=== PATIENT | female | born 1940 | race African-American/Black ===

== ENCOUNTER 2017-04-26 16:41 | Inpatient (IN) ==
[2017-04-26] MEDS ORDERED: CLINDAMYCIN INJ 600 MG in PREMIX 1 EACH IV STA (18:11)
[2017-04-26] MEDS ORDERED: SODIUM CHLORIDE 0.9% 500 ML IV STA (18:11)
[2017-04-26] MEDS ORDERED: cefTRIAXone 1,000 MG in SODIUM CHLORIDE 0.9% 100 ML IV STA (18:11)
[2017-04-26] MEDS ORDERED: DEXAMETHASONE 4 MG/1 ML VIAL IV STA (18:13)
[2017-04-26] MEDS ORDERED: cefTRIAXone 1,000 MG VIAL ONE (18:19)
[2017-04-26] MEDS ORDERED: CLINDAMYCIN 600 MG/4 ML VIAL ONE (18:20)
[2017-04-26] MEDS ORDERED: DEXAMETHASONE 10 MG/1 ML VIAL ONE (18:20)
--- NOTE | 2017-04-26 18:31 | Emergency Department Note ---
Liberty Chan Brittany, am scribing for, and in the presence of, Med Avendano MD 18:19. Romana Chan Charles R, MD, personally performed the services described in this documentation, ascribed by Jennifer Koenig in my presence, and it is both accurate and complete 831 . Arrival - Arrival ED Nursing Triage Note: L SIDE OF FACE SWOLLEN, SAW DR SANTILLAN TODAY AND RX GIVEN , ON WAY HOME PT BEGAN TO COMPLAIN OF BEING COLD SO THEY JUST BROUGHT HER BACK, ACCU CHECK IN TRIAGE 193 MG/DL Mode of Arrival: Wheelchair Limitations: No Limitations Source: Patient, Significant other - History of Present Illness Onset (ago): week(s) (Started 1 week ago) Consistency: constant Severity: moderate <eMd Avendano - Last Filed: 04/26/17 19:06> <Santos Quiroz - Last Filed: 04/26/17 20:38> - Arrival Chief Complaint: Abscess Stated Complaint: cold,diabetic,abscess on face,faintedm,tembling Time Seen by Provider: 04/26/17 17:54 - History of Present Illness HPI Narrative: This is a 76 y/o black female, who presents to the ED with c/o facial abscess which started 1 week ago. Her family states pt was seen by Dr. Santillan today and was given an RX for ABX. Her family states pt was instructed to take the ABX today and tomorrow, and then come back on 04/28. She was brought here, for unknown reasons. She has no pain at this time. Pt has no other complaints/pain in the ED at this time. Pt has a PMHx of CVA, CHF, CAD, TIA, IDDM, dyslipidemia , A-fib, GOUT, COPD, obstructive sleep apnea, and anemia. Pt has had a hysterectomy. Pt has a family medical Hx of diabetes and HTN. Pt denies a social Hx. (Jennifer Koenig) This is a 76 y/o black female, who presents to the ED with c/o facial abscess which started 1 week ago. Her family states pt was seen by Dr. Santillan today and was given an RX for ABX. Her family states pt was instructed to take the ABX today and tomorrow, and then come back on 04/28. She was brought here, for unknown reasons. She has no pain at this time. Pt has no other complaints/pain in the ED at this time. Pt has a PMHx of CVA, CHF, CAD, TIA, IDDM, dyslipidemia , A-fib, GOUT, COPD, obstructive sleep apnea, and anemia. Pt has had a hysterectomy. Pt has a family medical Hx of diabetes and HTN. Pt denies a social Hx. (Med Avendano) family describe a near syncopal or syncopal episode prior to arrival (Santos Quiroz) Allergies/Adverse Reactions: Allergies Allergy/AdvReac Type Severity Reaction Status Date / Time No Known Allergies Allergy Verified 04/26/17 17:18 Home Medications: Home Medications Medication Instructions Recorded Confirmed Type Aspirin [Ecotrin] 81 mg PO QAM 09/20/15 04/26/17 History Digoxin Tab [Lanoxin Tab] 0.125 mg PO QOTHER DAY 09/20/15 04/26/17 History Losartan [Cozaar] 50 mg PO DAILY 09/20/15 04/26/17 History Magnesium Oxide [Magox 400] 400 mg PO BID 09/20/15 04/26/17 History Omeprazole [Prilosec] 20 mg PO DAILY 09/20/15 04/26/17 History Furosemide Tab [Lasix Tab] 80 mg PO BID DIURETIC #60 tablet 09/24/15 04/26/17 Rx Albuterol Inhaler [Proventil 2 puff INH Q4H PRN 04/26/17 04/26/17 History Inhaler] Carvedilol [Coreg] 3.125 mg PO BID W/MEALS 04/26/17 04/26/17 History Ferrous Sulfate Tab [Feosol 325 mg PO BID 04/26/17 04/26/17 History Original Tab] Linagliptin [Tradjenta] 5 mg PO DAILY 04/26/17 04/26/17 History Potassium Chloride 10 meq PO QOTHER DAY 04/26/17 04/26/17 History Spironolactone [Aldactone] 25 mg PO BID DIURETIC 04/26/17 04/26/17 History hydrALAZINE TAB [Apresoline Tab] 25 mg PO BID 04/26/17 04/26/17 History metFORMIN [Glucophage] 1,000 mg PO DAILY W/BREAKFAST 04/26/17 04/26/17 History metFORMIN [Glucophage] 500 mg PO QPM 04/26/17 04/26/17 History Review of System - Review of System 12 point system: reviewed and no additional remarkable complaints except as stated - Review of System Constitutional: Present: fever Head/Ears/Nose/Throat: Present: other (Facial abscess) <Med Avendano - Last Filed: 04/26/17 19:06> Medical,Surgical,& Family Hx - Medical History Cardio: History of: Cardiac Dysrhythmia (atrial fib), Cerebrovascular Disease, CHF (nonischemic cardiomyopathy with EF of 20%), CAD (CARDIOMYOPATHY WITH REGURG ), Hypertension, Valvular Heart Disease, Cardiovascular Problems No history of: Aneurysm, Congenital Heart Disease, [place], Pacemaker, PVD Psychological: No history of: Anxiety Disorders, Depression Neurology: History of: Cerebrovascular Accident, TIA No history of: Seizures HEENT: History of: Glaucoma Endocrine: History of: Diabetes Mellitus (IDDM), Dyslipidemia Rheumatology: History of;: Gout Respiratory: History of: COPD, Obstructive Sleep Apnea No history of: Asthma, Bronchitis, Intubation, Pulmonary Embolism, Pulmonary Hypertension, Pneumonia, Lung Cancer, Respiratory Problems Renal: No history of: Renal (Kidney) Cancer, Dialysis, Renal Failure, Renal Problems Genitourinary: No history of: Bladder Problem, Kidney Stones, Recurring Urinary Tract Infections, Genitourinary Cancer, Problems Hematology: History of: Anemia - Surgical History Cardiac Surgeries: Patient Denies: Femoral-Popliteal Bypass Graft, Cardiac Catheterization, Cardiac Surgery, Carotid Endarterectomy, Internal Defibrillator, Vascular Access Devices Thoracic Surgeries: Patient denies;: Kidney (Renal Surgery), Lithotripsy, Nephrectomy, Lobectomy HEENT Surgeries: Patient denies: Carotid Endarterectomy Abdominal Surgeries: Patient denies: Splenectomy Reproductive Surgeries: Surgical HX of;: Hysterectomy Patient denies;: Cystoscopy, Genitourinary Surgery - Family History Family History: Reports;: Family Diabetes, Family Hypertension Denies;: Family Heart Disease - Social History Smoking Status: Never smoker <Med Avendano R - Last Filed: 04/26/17 19:06> Exam - General General appearance: alert, in no apparent distress - Head Head exam: Present: atraumatic, other. Absent: normocephalic, normal inspection (There is a rock soild hard cellulitis noted to the face. ) - Eye Eye exam: Present: normal appearance, PERRL, EOMI. Absent: nystagmus - ENT ENT exam: Present: normal exam, mucous membranes moist, other (Edentulous) - Neck Neck exam: Present: normal inspection, full ROM, trachea midline. Absent: tenderness - Chest Chest inspection: Present: normal inspection, symmetric chest wall rise. Absent : tenderness - Respiratory Respiratory exam: Present: rales, rhonchi. Absent: normal lung sounds bilaterally - Cardiovascular Cardiovascular exam: Present: normal rhythm, tachycardia, normal heart sounds. Absent: murmur, rubs, gallop, clicks, JVD - Abdominal Exam Abdominal exam: Present: soft, normal bowel sounds. Absent: distention, tenderness, guarding, rebound, rigidity - Rectal Exam Rectal exam: Present: deferred - Extremities Exam Extremities exam: Present: normal inspection, full ROM, normal capillary refill. Absent: pedal edema - Back Exam Back exam: Present: normal inspection, full ROM. Absent: tenderness, muscle spasm, rashes - Neurological Exam Neurological exam: Present: alert, oriented X3, CN II-XII intact. Absent: motor sensory deficit - Psychiatric Psychiatric exam: Present: normal affect, normal mood. Absent: depressed, agitated, anxious, flat affect, manic - Skin Skin exam: Present: warm, dry, intact, normal color. Absent: rash, cyanosis, diaphoresis, erythema, pallor, mottled <Med Avendano - Last Filed: 04/26/17 19:06> Vital Signs: Vital Signs Temperature 100.2 F H 04/26/17 17:57 Pulse Rate 118 H 04/26/17 17:57 Respiratory Rate 20 04/26/17 17:57 Blood Pressure 110/71 04/26/17 17:57 O2 Sat by Pulse Oximetry 91 L 04/26/17 17:08 Course - Consultations Time: 19:06 <Med Avendano - Last Filed: 04/26/17 19:06> <Santos Quiroz - Last Filed: 04/26/17 20:38> - Consultations Consultation #1: Patient's care was transferred to Dr. Quiroz ER doctor assuming care of this patient (Med Avendano) Consultation #2: will admit for IV abx and ENT surgical consult (Santos Quiroz) Results - Labs CBC & BMP: 04/26/17 18:55 04/26/17 18:55 Lab Results: I have reviewed the patients labs - Diagnostic Findings Procedure: CT: image reviewed by me (see reports) <Santos Quiroz - Last Filed: 04/26/17 20:38> Disposition Case discussed with: patient, patient's family <Med Avendano - Last Filed: 04/26/17 19:06> Case discussed with: patient, patient's family <Santos Quiroz - Last Filed: 04/26/17 20:38> Clinical Impression: Cellulitis, Sepsis, Syncope Disposition: Still a Patient Condition: Stable
[2017-04-26 19:08] LABS: Basophils % 0.2 % (0.0-0.8); Hemoglobin 10.1 GM/DL (12.0-16.0); Immature Granulocytes % 0.7 %; Immature Granulocytes Absolute 0.17 #; Lymphocytes # 0.6 10*3/uL (1.4-4.0); Lymphocytes % 2.4 % (21.3-54.2); Mean Corpuscular HGB Conc 33.7 GM/DL (32-36); Mean Corpuscular Hemoglobin 25 PG (27-34); Mean Corpuscular Volume 74.3 FL (87-102); Mean Platelet Volume 9.5 FL (9.6-12.0); Monocytes # 0.7 10*3/uL (0.11-0.8); Monocytes % 2.7 % (1.7-12.7); NRBC # 0.02 10*3/uL; Neutrophils # 22.6 10*3/uL (1.4-7.4); Platelet Count 321 T/CUMM (130-400); Red Blood Count 4.04 MC/CUMM (3.8-5.5); Red Cell Distribution Width 19.8 % (9.3-17.3); White Blood Count 24.1 T/CUMM (4-12)
--- NOTE | 2017-04-26 19:08 | CT Report ---
CT head/brain wo con Indication: Confusion. CT BRAIN WITHOUT CONTRAST DLP: 1568 mGy*cm. One or more of the following dose reduction techniques was used: Automated exposure control, adjustment of the mA and/or kV according the patient size, or use of iterative reconstruction techniques. Comparison: 03/21/2013. Date of admission: 04/26/2017. Technique: Axial noncontrast CT images of the brain were obtained. Findings: There is focal encephalomalacia subcortical white matter left frontal lobe. Elsewhere, lawler-white junction is maintained in the basal ganglia structures remain well-defined. No acute hemorrhage. No mass or mass effect. Generalized atrophy and patchy periventricular white matter hypodensity is present. No bone lesions. Visualized sinuses are clear. Left parotid mass, described separately. Impression: 1. No acute intracranial pathology. 2. Generalized atrophy and chronic small vessel ischemic change. 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 PROCEDURE INTERPRETED AT [facility] DEPARTMENT OF RADIOLOGY Final Report Signed by: Levar Ku M.D.
--- NOTE | 2017-04-26 19:11 | CT Report ---
CT facial bones wo con Indication: Cellulitis left face. CT FACE WITHOUT CONTRAST DLP: 1568 mGy*cm. One or more of the following dose reduction techniques was used: Automated exposure control, adjustment of the mA and/or kV according the patient size, or use of iterative reconstruction techniques. Technique: Axial noncontrast CT images of the face were obtained. Coronal reconstructions were provided. Comparison: 06/01/2010 Findings: The left parotid gland is significantly enlarged, more so than on the previous exam 7 years ago. Overall size of the left parotid is approximately 80 x 60 mm, previously 70 x 45 mm in same dimension. 2 distinct internal calcifications are again shown. Right parotid gland, submandibular glands and floor the mouth appear unremarkable. Airways somewhat deviated to the right due to mass effect from the left parotid gland. Left posterior cervical chain lymphadenopathy is identified, largest node 10 mm short axis. Largest anterior chain node is 9 mm short axis. No bony destruction. No facial fractures. Orbits are symmetric. Impression: 1. 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 Internal calcifications noted as well. Given the relatively slow growth over 7 years, suspect a indolent and relatively benign process. Would anticipate neoplasm the most progressive. There is, however, left anterior posterior cervical chain lymphadenopathy present. PROCEDURE INTERPRETED AT [facility] DEPARTMENT OF RADIOLOGY Final Report Signed by: Levar Ku M.D.
--- NOTE | 2017-04-26 19:18 | XRay Report ---
XR chest 1V portable Indication: Shortness of breath and fever. Chest one view: Comparison 09/23/2015. Moderate to severe cardiomegaly is stable. Lungs remain hypoinflated with central pulmonary vascular crowding. Mild elevation right hemidiaphragm is stable. No definite infiltrates are seen but the left lung base is somewhat obscured by combination of obesity, overlying cardiac shadow, and possible infiltrate. Impression: 1. Cardiomegaly without overt CHF. 2. Obscuration left lung base, likely summation of overlying densities. However, underlying pneumonia cannot be excluded. PROCEDURE INTERPRETED AT [facility] DEPARTMENT OF RADIOLOGY Final Report Signed by: Levar Ku M.D.
[2017-04-26 19:28] LABS: Band Neutrophils 1 % (0-10); Hypochromasia 2+; Lymphocytes 1 % (20-55); Ovalocytes 1+; Platelet Estimate Adequate; Poikilocytosis 1+; Segmented Neutrophils 96 % (50-85); Target Cells Few; Total Cells Counted 100
[2017-04-26 19:37] LABS: Albumin 2.9 G/DL (3.4-5.0); Bilirubin,Total 2.1 MG/DL (0.2-1.0); Calcium 8.9 MG/DL (8.5-10.1); Potassium 3.1 MMOL/L (3.5-5.1); Total Protein 7.7 G/DL (6.4-8.3)
[2017-04-26 20:11] LABS: Sedimentation Rate-Westergren 95 MM/HR (0-30)
[2017-04-26] MEDS ORDERED: ONDANSETRON 4 MG/2 ML VIAL IV PRN (20:21)
[2017-04-26] MEDS ORDERED: ZALEPLON 5 MG CAPSULE PO PRN (20:21)
[2017-04-26] MEDS ORDERED: DEXTROSE 50% 25 GM/50 ML SYRINGE IV PRN (20:21)
[2017-04-26] MEDS ORDERED: GLUCAGON 1 MG VIAL IM PRN (20:21)
[2017-04-26] MEDS ORDERED: ACETAMINOPHEN 325 MG TABLET PO PRN (20:21)
--- NOTE | 2017-04-26 21:00 | Hospitalist History & Physical ---
Assessment and Plan - Time spent with patient Time spent with patient: Greater than 30 minutes (1) Acute parotitis Status: Acute Assessment and plan: Admit to hospitalist services. Consult ENT. Zosyn 3.375 mg Q8 hours. Diabetic Diet - Soft diet/Soups. Current Visit: Yes (2) Sepsis Status: Acute Assessment and plan: Source: Left parietal gland and possibly lungs. Patient has a history of CHF and was given a 500 ml bolus in the ED. IV NS + 40KCl at 50 ml/hr. Zosyn 3.375 mg IV Q8 hours. Repeat CBC and CMP in AM. Current Visit: Yes (3) Congestive heart failure Status: Chronic Assessment and plan: Holding IV fluids for now. BP is stable at this time. Hold home BP meds for now due to syncopal episode and monitor BP. Hold diuretics for now; continue to monitor fluid status. Current Visit: No (4) Diabetes mellitus Status: Chronic Assessment and plan: Accuchecks ACHS. Hold oral medications. SSI ACHS. Repeat CMP in AM. Current Visit: Yes Qualifiers: Diabetes mellitus complication status: with skin complications Diabetes mellitus complication detail: with dermatitis (5) Essential hypertension Status: Resolved Assessment and plan: Stable for now. Hold home meds for now. Monitor. Current Visit: No (6) DVT prophylaxis Status: Acute Assessment and plan: Lovenox 40 mg SQ daily. Current Visit: Yes History of Present Illness Chief complaint: Jaw swelling History of present illness: Ms. Garcia is a 76 year old female with a history of CVA, CHF, DM, HTN, and two previous episodes of parotitis who presented to the ED today with complaints of left jaw swelling and malaise x 6 days. Ms. Garcia was seen today by Dr. Young and states that he wanted to drain her abscess but was unable to do so today for reasons that are not completely clear. He sent her home with prescriptions for antibiotics and told her to come back on at which time he would put her in the hospital and drain the abscess. While the family was waiting in the pharmacy drive through to flower pick[facility] prescriptions, they state that the patient "went out" and when she "came to" she was shaking, did not initially respond verbally, and was disoriented to person. In the ED, Ms. Garcia was found to have a WBC count of 24.1, temp of 100.2, HR of 122, RR of 22 and O2 sat of 91 % on 2L of O2. 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 Internal calcifications noted as well. Given the relatively slow growth over 7 years, suspect a indolent and relatively benign process. Would anticipate neoplasm the most progressive. There is, however, left anterior posterior cervical chain lymphadenopathy present." CXR showed "cardiomegaly without overt CHF and obscuration left lung base, likely summation of overlying densities. However, underlying pneumonia cannot be excluded." She denies headache, chest pain, shortness of breath, and nausea, vomiting or diarrhea. She does state that she has had a cough and something sometimes "comes up," but she is unsure if it is coming from her chest of if it is draining from her abscess. Hospitalist services were consulted for IV antibiotic treatment, and the patient will be admitted to the med-surg floor. Home Medications Medication Instructions Recorded Confirmed Type Aspirin [Ecotrin] 81 mg PO QAM 09/20/15 04/26/17 History Digoxin Tab [Lanoxin Tab] 0.125 mg PO QOTHER DAY 09/20/15 04/26/17 History Losartan [Cozaar] 25 mg PO DAILY 09/20/15 04/26/17 History Magnesium Oxide [Magox 400] 400 mg PO BID 09/20/15 04/26/17 History Omeprazole [Prilosec] 20 mg PO DAILY 09/20/15 04/26/17 History Furosemide Tab [Lasix Tab] 80 mg PO BID DIURETIC #60 tablet 09/24/15 04/26/17 Rx Albuterol Inhaler [Proventil 2 puff INH Q4H PRN 04/26/17 04/26/17 History Inhaler] Carvedilol [Coreg] 3.125 mg PO BID W/MEALS 04/26/17 04/26/17 History Ferrous Sulfate Tab [Feosol 325 mg PO BID 04/26/17 04/26/17 History Original Tab] Latanoprost 0.005% Oph Soln 2 drops BOTH EYES BEDTIME 04/26/17 04/26/17 History [Xalatan 0.005% Oph Soln] Linagliptin [Tradjenta] 5 mg PO DAILY 04/26/17 04/26/17 History Potassium Chloride 10 meq PO QOTHER DAY 04/26/17 04/26/17 History Spironolactone [Aldactone] 25 mg PO BID DIURETIC 04/26/17 04/26/17 History hydrALAZINE TAB [Apresoline Tab] 25 mg PO BID 04/26/17 04/26/17 History metFORMIN [Glucophage] 1,000 mg PO DAILY W/BREAKFAST 04/26/17 04/26/17 History metFORMIN [Glucophage] 500 mg PO QPM 04/26/17 04/26/17 History Allergies Allergy/AdvReac Type Severity Reaction Status Date / Time No Known Allergies Allergy Verified 04/26/17 17:18 Medical,Surgical,& Family Hx - Medical History Cardio: History of: Cardiac Dysrhythmia (atrial fib), Cerebrovascular Disease, CHF (nonischemic cardiomyopathy with EF of 20%), CAD (CARDIOMYOPATHY WITH REGURG ), Hypertension, Valvular Heart Disease, Cardiovascular Problems No history of: Aneurysm, Congenital Heart Disease, [place], Pacemaker, PVD Psychological: No history of: Anxiety Disorders, Depression Neurology: History of: Cerebrovascular Accident, TIA No history of: Seizures HEENT: History of: Glaucoma, HEENT Problems (parotitis) Endocrine: History of: Diabetes Mellitus (IDDM), Dyslipidemia Rheumatology: History of;: Gout Respiratory: History of: COPD, Obstructive Sleep Apnea No history of: Asthma, Bronchitis, Intubation, Pulmonary Embolism, Pulmonary Hypertension, Pneumonia, Lung Cancer, Respiratory Problems Renal: No history of: Renal (Kidney) Cancer, Dialysis, Renal Failure, Renal Problems Genitourinary: No history of: Bladder Problem, Kidney Stones, Recurring Urinary Tract Infections, Genitourinary Cancer, Problems Gastrointestinal: History of: GERD Hematology: History of: Anemia - Surgical History Cardiac Surgeries: Patient Denies: Femoral-Popliteal Bypass Graft, Cardiac Catheterization, Cardiac Surgery, Carotid Endarterectomy, Internal Defibrillator, Vascular Access Devices Thoracic Surgeries: Patient denies;: Kidney (Renal Surgery), Lithotripsy, Nephrectomy, Lobectomy HEENT Surgeries: Patient denies: Carotid Endarterectomy Abdominal Surgeries: Patient denies: Splenectomy Reproductive Surgeries: Surgical HX of;: Hysterectomy Patient denies;: Cystoscopy, Genitourinary Surgery - Family History Family History: Reports;: Family Diabetes, Family Hypertension Denies;: Family Heart Disease - Social History Smoking Status: Never smoker Have you smoked in the last 12 months: No Frequency of Alcohol Use: None Type of Drug Use: None Marital Status: Lives With:: Children Functional capacity: uses cane/walker - Constitutional Constitutional: Present: chills, fever(s), malaise, weakness - EENT Eyes: Absent: blurry vision, diplopia, loss of vision Ears: Absent: decreased hearing, ear discharge, tinnitus Nose, mouth and throat: Present: other (jaw swelling). Absent: headache(s), sore throat - Cardiovascular Cardiovascular: Absent: chest pain at rest, dyspnea, edema - Respiratory Respiratory: Present: cough. Absent: dyspnea - Gastrointestinal Gastrointestinal: Absent: abdominal pain, diarrhea, nausea, vomiting - Genitourinary Genitourinary: Absent: dysuria, urinary frequency - Musculoskeletal Musculoskeletal: Present: muscle weakness. Absent: arthralgias, joint swelling , myalgias - Neurological Neurological: Present: other (disorientation; shaking). Absent: headache(s) - Psychiatric Psychiatric: Absent: anxiety, depression - Endocrine Endocrine: Absent: polydipsia, polyphagia, polyuria - Hematologic/Lymphatic Hematologic/Lymphatic: Absent: easy bleeding, easy bruising Exam - Constitutional Vitals: Period Temp Pulse Resp BP Sys/Johnson Pulse Ox Last 24 Hr 100.2 F-100.2 F 118-122 20-22 110-110/71-71 91 Exam: Constitutional System: Awake, alert and oriented x 3. No distress. No tremulousness. Head: Normocephalic, atraumatic. Ears, Nose and Throat System: Significant swelling and tenderness around left lower jaw. No epistaxis or discharge Eyes System: Pupils equal, round, and reactive. Extraocular muscles intact. Neck: Supple, without adenopathy, No jugular venous distention. No thyromegaly, neck mass, or prior surgery apparent. Respiratory System: Diminished bilateral posterior breath sounds, particularly in the bases. Cardiovascular System: Heart with tachycardic rate and irregular rhythm. No murmur. GI System: Abdomen soft, nontender. Normo active bowel sounds present. Musculoskeletal System: limbs with minimal pedal edema. Full distal pulses. Normal capillary refill. Neurological System: No discernable sensory deficit. No aphasia. Psychiatric System: Conversation is rational Results - Labs CBC & BMP: 04/26/17 18:55 04/26/17 18:55 Lab Results: I have reviewed the past 24 hour labs
[2017-04-26] MEDS: PIPERACILLIN/TAZOBACTAM 3,375 MG in SODIUM CHLORIDE 0.9% 100 ML IV SCH (23:12)
[2017-04-26] MEDS: ENOXAPARIN 40 MG/0.4 ML SYRINGE SUBCUT SCH (23:15)
[2017-04-27 03:50] LABS: Apearance,Urine CLEAR (Clear); Bilirubin,Urine Negative (Negative); Blood, Urine Negative (Negative); Glucose,Urine (UA) Negative (Negative); Ketones,Urine Negative (Negative); Mucus,Urine Occasional /LPF (Occasional); Nitrite,Urine Negative (Negative); Protein,Urine 100 MG/DL; RBC,Urine 2 /HPF (0-4); Squamous Epithelial Cell,Urine Occasional /HPF (0-10); Urine Color Amber (Yellow); Urine Specific Gravity 1.016 (1.001-1.035); WBC,Urine 1 /HPF (0-6)
[2017-04-27 05:31] LABS: Troponin I Only 0.148 NG/ML (0.00-0.045)
[2017-04-27] MEDS: SODIUM CHLOR 0.9% KCL 40 MEQ 40 MEQ/1,000 ML BAG IV SCH (06:00)
[2017-04-27] MEDS: PIPERACILLIN/TAZOBACTAM 3,375 MG in SODIUM CHLORIDE 0.9% 100 ML IV SCH ×3 (06:07→22:13)
[2017-04-27 07:19] LABS: Basophils % 0.2 % (0.0-0.8); Hematocrit 31.2 VOL% (35.7-47.0); Hemoglobin 10.1 GM/DL (12.0-16.0); Immature Granulocytes % 1.7 %; Immature Granulocytes Absolute 0.45 #; Lymphocytes # 0.8 10*3/uL (1.4-4.0); Lymphocytes % 3.1 % (21.3-54.2); Mean Corpuscular HGB Conc 32.4 GM/DL (32-36); Mean Corpuscular Hemoglobin 24 PG (27-34); Mean Corpuscular Volume 75.4 FL (87-102); Mean Platelet Volume 10.1 FL (9.6-12.0); Monocytes # 1.1 10*3/uL (0.11-0.8); Monocytes % 4.2 % (1.7-12.7); Neutrophils # 23.7 10*3/uL (1.4-7.4); Neutrophils % 90.8 % (38.7-73.9); Platelet Count 361 T/CUMM (130-400); Red Blood Count 4.14 MC/CUMM (3.8-5.5); Red Cell Distribution Width 20.2 % (9.3-17.3); White Blood Count 26.1 T/CUMM (4-12)
[2017-04-27 07:46] LABS: Albumin 2.7 G/DL (3.4-5.0); Bilirubin,Total 2.1 MG/DL (0.2-1.0); Calcium 9.3 MG/DL (8.5-10.1); Osmolality,Calculated 286.3 MOS/KG (273-304); Potassium 3.4 MMOL/L (3.5-5.1); Total Protein 7.5 G/DL (6.4-8.3)
[2017-04-27 07:47] LABS: Band Neutrophils 4 % (0-10); Hypochromasia 2+; Lymphocytes 3 % (20-55); Segmented Neutrophils 90 % (50-85); Total Cells Counted 100
[2017-04-27 07:48] LABS: Microcytosis 1+; Ovalocytes Slight; Platelet Estimate Normal
[2017-04-27 07:50] LABS: Troponin I Only 0.182 NG/ML (0.00-0.045)
[2017-04-27] MEDS: PANTOPRAZOLE 40 MG TABLET PO SCH (09:04)
[2017-04-27 10:58] LABS: Troponin I Only 0.173 NG/ML (0.00-0.045)
--- NOTE | 2017-04-27 11:14 | Hospitalist Progress Note ---
Assessment and Plan (1) Elevated troponin Status: Acute Assessment and plan: Troponins today have been 0.183 and 0.172. Her troponins may be elevated secondary to renal insufficiency. Cardiology has been consulted. Current Visit: Yes (2) Renal insufficiency Status: Acute Assessment and plan: Today her BUN is 22 and creatinine 1.2. She is being treated with intravenous normal saline. It is unclear if this is acute on chronic renal failure or alternatively acute renal failure. Current Visit: Yes (3) Nonischemic cardiomyopathy Status: Chronic Assessment and plan: There is no evidence of the present time of acute congestive heart failure. Current Visit: No (4) Diabetes mellitus Status: Chronic Assessment and plan: She has type 2 diabetes mellitus. She is presently being treated with Metformin and linaglitide. She is being treated in the hospital with sliding scale regular insulin coverage. Current Visit: Yes Qualifiers: Diabetes mellitus type: type 2 Diabetes mellitus complication status: with skin complications Diabetes mellitus complication detail: with dermatitis (5) Sepsis Status: Acute Assessment and plan: She is hemodynamically stable. She is being treated with intravenous Zosyn. Current Visit: Yes Qualifiers: Sepsis type: sepsis due to unspecified organism Qualified Code(s): A41.9 - Sepsis, unspecified organism (6) Syncope Status: Acute Assessment and plan: She has experienced no recurrent such episodes. It is probable that her syncope is secondary to her sepsis. Current Visit: Yes (7) Acute parotitis Status: Acute Assessment and plan: She is being treated with intravenous Zosyn. Otolaryngology has been consulted. Current Visit: Yes Hospitalist: Subjective Interval history: Patient was admitted to the hospital last night with syncope, parotitis, and sepsis. She is presently being treated with intravenous Zosyn. Neurology and otolaryngology have been consulted. She feels much better today. She has had no recurrent episodes of syncope. Exam - Constitutional Vitals: Period Temp Pulse Resp BP Sys/Johnson Pulse Ox Last 24 Hr 97.4 F-100.2 F 65-122 18-22 110-117/66-71 91-99 General appearance: no acute distress - Head Head exam: Present: normal inspection - Neck Neck exam: Present: normal inspection - Respiratory Respiratory exam: Present: clear to auscultation bilaterally - Cardiovascular Cardiovascular exam: Present: regular rate and rhythm - GI/Abdominal GI/Abdominal exam: Present: normal bowel sounds, soft, other (Nontender with no palpable masses or hepatosplenomegaly.) - Extremities Exam Extremities exam: Present: normal inspection - Neurological Exam Neurological exam: Present: alert, oriented X3, CN II-XII intact - Psychiatric Psychiatric exam: Present: normal affect - Skin Skin exam: Present: normal color, warm, intact Results - Labs CBC & BMP: 04/27/17 06:47 04/27/17 06:47
--- NOTE | 2017-04-27 11:27 | Ultrasound Report ---
History: Syncope Date: 04/27/2017 Study: Carotid duplex ultrasound Comparison exam: August 10, 2012 Color Doppler, wave form analysis, and grayscale analysis of the cervical carotid arteries was performed. There is mild smooth plaque in either carotid bulb. Waveform analysis shows proper directional flow of the cervical carotid arteries. There is antegrade flow in either vertebral artery. The distal right ICA measures 6.5 mm diameter; the left measures 6.3 mm diameter. Peak systolic velocities are as follows: Right CCA 52 cm/s Right ICA 73 cm/s Right ECA 56 cm/s Right vertebral 50 cm/s Right IC/CC ratio 1.4 Left CCA 42 cm/s Left ICA 71 cm/s Left ECA 52 cm/s Left vertebral 30 cm/s Left IC/CC ratio 1.7 There is 16-49% diameter reduction narrowing of either internal carotid artery using indirect NASCET criteria. Ultrasound images were captured and archived. Impression: No hemodynamically significant internal carotid artery stenosis PROCEDURE INTERPRETED AT [facility] DEPARTMENT OF RADIOLOGY Final Report Signed by: Dr. Melita Rivera
[2017-04-27] MEDS ORDERED: ALBUTEROL 2.5 MG/3 ML NEB RESP TX PRN (12:00)
--- NOTE | 2017-04-27 13:00 | Consultation ---
Assessment and Plan - Time spent with patient Time spent with patient: Less than 30 minutes (1) Acute parotitis Status: Acute Assessment and plan: I agree with current treatment I would add sialagogues such as lemon drops I discussed this with her daughter additionally I recommend a K pad or heating pad to help with carotid flow. Additionally I recommend and demonstrated parotid massage and other effleurage techniques that may help with drainage. After reviewing the CT and the fact that she has multiple medical comorbidities and sepsis she may benefit from at least attempting to open the parotid duct and seen if we can get some of this draining. I will reevaluate tomorrow and if she is not drastically improving we may consider a minimal procedure on Tuesday to open things up. Additionally if this continues and does not markedly improve we may need to discuss parotidectomy in the near future. You very much for consulting me on this case I will continue to follow throughout the entirety of her stay. Current Visit: Yes (2) H/O parotitis Status: Acute Current Visit: Yes (3) Trismus Status: Acute Current Visit: Yes (4) Sepsis Status: Acute Current Visit: Yes Qualifiers: Sepsis type: sepsis due to unspecified organism Qualified Code(s): A41.9 - Sepsis, unspecified organism History of Present Illness - Data of Consult Patient: new to practice Consult date: 04/27/17 - Consult Narrative Reason for consult: Left parotiditis versus parotid lesion History of present illness: Ms. Garcia is a 76 year old female with a history of chronic left parotiditis that has recently exacerbated even more than usual and was seen as an outpatient and treated with antibiotics and ultimately worsened on her way home and went to the emergency room where she was admitted. ENT is consulted to evaluate and treat this lesion she is currently being treated with IV Zosyn and has multiple medical comorbidities as well. CC: Eduardo Smith - Home Medications and Allergies Home Medications: Home Medications Medication Instructions Recorded Confirmed Type Aspirin [Ecotrin] 81 mg PO QAM 09/20/15 04/26/17 History Digoxin Tab [Lanoxin Tab] 0.125 mg PO QOTHER DAY 09/20/15 04/26/17 History Losartan [Cozaar] 25 mg PO DAILY 09/20/15 04/26/17 History Magnesium Oxide [Magox 400] 400 mg PO BID 09/20/15 04/26/17 History Omeprazole [Prilosec] 20 mg PO DAILY 09/20/15 04/26/17 History Furosemide Tab [Lasix Tab] 80 mg PO BID DIURETIC #60 tablet 09/24/15 04/26/17 Rx Albuterol Inhaler [Proventil 2 puff INH Q4H PRN 04/26/17 04/26/17 History Inhaler] Carvedilol [Coreg] 3.125 mg PO BID W/MEALS 04/26/17 04/26/17 History Ferrous Sulfate Tab [Feosol 325 mg PO BID 04/26/17 04/26/17 History Original Tab] Latanoprost 0.005% Oph Soln 2 drops BOTH EYES BEDTIME 04/26/17 04/26/17 History [Xalatan 0.005% Oph Soln] Linagliptin [Tradjenta] 5 mg PO DAILY 04/26/17 04/26/17 History Potassium Chloride 10 meq PO QOTHER DAY 04/26/17 04/26/17 History Spironolactone [Aldactone] 25 mg PO BID DIURETIC 04/26/17 04/26/17 History hydrALAZINE TAB [Apresoline Tab] 25 mg PO BID 04/26/17 04/26/17 History metFORMIN [Glucophage] 1,000 mg PO DAILY W/BREAKFAST 04/26/17 04/26/17 History metFORMIN [Glucophage] 500 mg PO QPM 04/26/17 04/26/17 History Allergies/Adverse Reactions: Allergies Allergy/AdvReac Type Severity Reaction Status Date / Time No Known Allergies Allergy Verified 04/26/17 17:18 12 point system: reviewed and no additional remarkable complaints except as stated Medical,Surgical,& Family Hx - Medical History Cardio: History of: Cardiac Dysrhythmia (atrial fib), Cerebrovascular Disease, CHF (nonischemic cardiomyopathy with EF of 20%), CAD (CARDIOMYOPATHY WITH REGURG ), Hypertension, Valvular Heart Disease, Cardiovascular Problems No history of: Aneurysm, Congenital Heart Disease, [place], Pacemaker, PVD Psychological: No history of: Anxiety Disorders, Depression Neurology: History of: Cerebrovascular Accident, TIA No history of: Seizures HEENT: History of: Eye Problem (CATARACT L EYE), Glaucoma, HEENT Problems ( parotitis) Endocrine: History of: Diabetes Mellitus (IDDM), Dyslipidemia No history of: Diabetes Mellitus (NIDDM) Rheumatology: History of;: Gout Respiratory: History of: COPD, Obstructive Sleep Apnea No history of: Asthma, Bronchitis, Intubation, Pulmonary Embolism, Pulmonary Hypertension, Pneumonia, Lung Cancer, Respiratory Problems Renal: No history of: Renal (Kidney) Cancer, Dialysis, Renal Failure, Renal Problems Genitourinary: No history of: Bladder Problem, Kidney Stones, Recurring Urinary Tract Infections, Genitourinary Cancer, Problems Gastrointestinal: History of: GERD Hematology: History of: Anemia Other: History of: Skin Problems (right leg lesion removed) - Surgical History Cardiac Surgeries: Patient Denies: Femoral-Popliteal Bypass Graft, Cardiac Catheterization, Cardiac Surgery, Carotid Endarterectomy, Internal Defibrillator, Vascular Access Devices Thoracic Surgeries: Patient denies;: Kidney (Renal Surgery), Lithotripsy, Nephrectomy, Lobectomy HEENT Surgeries: Patient denies: Carotid Endarterectomy, Eye Surgery, Thyroid Surgery, Tonsilectomy & Adenoidectomy Abdominal Surgeries: Surgical HX of: EGD Patient denies: Abdominal Surgery, Appendectomy, Cholecystectomy, Colonoscopy , Gastric Bypass Surgery, Hernia Repair, Splenectomy Reproductive Surgeries: Surgical HX of;: Hysterectomy Patient denies;: Cystoscopy, Genitourinary Surgery - Family History Family History: Reports;: Family Diabetes, Family Hypertension, Family Psychiatric Problems (daughter (nervous break down)) Denies;: Family Anesthesia Reaction, Family Cancer, Family Heart Disease, Family Hematology, Family Stroke, Additional Family History - Social History Smoking Status: Never smoker Frequency of Alcohol Use: None Type of Drug Use: None Exam - Constitutional Vitals: Period Temp Pulse Resp BP Sys/Johnson Pulse Ox Last 24 Hr 97.4 F-100.2 F 65-122 18-22 101-117/66-71 91-99 General appearance: mild distress, over weight - Head Head exam: Present: other (Very large tender nonfluctuant left parotiditis consistent with CT evaluation consistent with an acute infectious etiology but this may be secondary to an underlying neoplasm most likely benign) - Eye Eye exam: Present: EOMI Pupils: Present: COURTNEY - ENT ENT exam: Present: normal exam, normal external ear exam, other (Significant trismus secondary to the parotiditis) - Neck Neck exam: Present: lymphadenopathy, tenderness, other (Consistent with parotiditis but potentially secondary to underlying neoplasm) - Respiratory Respiratory exam: Present: other (No gross shortness of breath or difficulty breathing) - Cardiovascular Cardiovascular exam: Present: other (History of CHF and significant cardiovascular history I did mention to the nurse practitioner that if she is not improving by tomorrow we may consider dilation irrigation in the OR) - GI/Abdominal GI/Abdominal exam: Present: soft - Extremities Exam Extremities exam: Present: normal inspection, normal capillary refill - Neurological Exam Neurological exam: Present: alert, oriented X3, CN II-XII intact - Psychiatric Psychiatric exam: Present: normal affect, normal mood - Skin Skin exam: Present: normal color, warm Results - Labs CBC & BMP: 04/27/17 06:47 04/27/17 06:47 Lab Results: I have reviewed the past 24 hour labs - Diagnostic Findings Procedure: CT: pending, image reviewed by me, report reviewed by me ( Calcifications consistent with long standing parotid inflammation consistent with chronic parotiditis but potentially an underlying neoplasm or even possibly malignancy but not clearly visualized on CT)
--- NOTE | 2017-04-27 15:33 | Neurology Consult Note ---
History of Present Illness History of present illness: Ms. Garcia is a 76 year old right-handed -Thai lady with a history of left JOSH CVA, CHF, DM, HTN, and two previous episodes of parotitis who presented to the ED yesterday with complaints of left jaw swelling and malaise x 6 days. Ms. Garcia was seen by Dr. Young and states that he wanted to drain her abscess but was unable to do so. He sent her home with prescriptions for antibiotics. While the family was waiting in the pharmacy drive through to picker feeder prescriptions, they state that the patient "went out" and when she "came to" she was shaking, did not initially respond verbally, and was disoriented to person. Episode lasted for 20 minutes or so and associated with urinary incontinence as well. In the ED, Ms. Garcia was found to have a WBC count of 24.1, temp of 100.2, HR of 122, RR of 22 and O2 sat of 91% on 2L of O2. CT of the head revealed old left JOSH infarct but nothing acute. At the present time patient is alert and awake and oriented. Home Medications Medication Instructions Recorded Confirmed Type Aspirin [Ecotrin] 81 mg PO QAM 09/20/15 04/26/17 History Digoxin Tab [Lanoxin Tab] 0.125 mg PO QOTHER DAY 09/20/15 04/26/17 History Losartan [Cozaar] 25 mg PO DAILY 09/20/15 04/26/17 History Magnesium Oxide [Magox 400] 400 mg PO BID 09/20/15 04/26/17 History Omeprazole [Prilosec] 20 mg PO DAILY 09/20/15 04/26/17 History Furosemide Tab [Lasix Tab] 80 mg PO BID DIURETIC #60 tablet 09/24/15 04/26/17 Rx Albuterol Inhaler [Proventil 2 puff INH Q4H PRN 04/26/17 04/26/17 History Inhaler] Carvedilol [Coreg] 3.125 mg PO BID W/MEALS 04/26/17 04/26/17 History Ferrous Sulfate Tab [Feosol 325 mg PO BID 04/26/17 04/26/17 History Original Tab] Latanoprost 0.005% Oph Soln 2 drops BOTH EYES BEDTIME 04/26/17 04/26/17 History [Xalatan 0.005% Oph Soln] Linagliptin [Tradjenta] 5 mg PO DAILY 04/26/17 04/26/17 History Potassium Chloride 10 meq PO QOTHER DAY 04/26/17 04/26/17 History Spironolactone [Aldactone] 25 mg PO BID DIURETIC 04/26/17 04/26/17 History hydrALAZINE TAB [Apresoline Tab] 25 mg PO BID 04/26/17 04/26/17 History metFORMIN [Glucophage] 1,000 mg PO DAILY W/BREAKFAST 04/26/17 04/26/17 History metFORMIN [Glucophage] 500 mg PO QPM 04/26/17 04/26/17 History Allergies Allergy/AdvReac Type Severity Reaction Status Date / Time No Known Allergies Allergy Verified 04/26/17 17:18 12 point system: reviewed and no additional remarkable complaints except as stated Medical,Surgical,& Family Hx - Medical History Cardio: History of: Cardiac Dysrhythmia (atrial fib), Cerebrovascular Disease, CHF (nonischemic cardiomyopathy with EF of 20%), CAD (CARDIOMYOPATHY WITH REGURG ), Hypertension, Valvular Heart Disease, Cardiovascular Problems No history of: Aneurysm, Congenital Heart Disease, [place], Pacemaker, PVD Psychological: No history of: Anxiety Disorders, Depression Neurology: History of: Cerebrovascular Accident, TIA No history of: Seizures HEENT: History of: Eye Problem (CATARACT L EYE), Glaucoma, HEENT Problems ( parotitis) Endocrine: History of: Diabetes Mellitus (IDDM), Dyslipidemia No history of: Diabetes Mellitus (NIDDM) Rheumatology: History of;: Gout Respiratory: History of: COPD, Obstructive Sleep Apnea No history of: Asthma, Bronchitis, Intubation, Pulmonary Embolism, Pulmonary Hypertension, Pneumonia, Lung Cancer, Respiratory Problems Renal: No history of: Renal (Kidney) Cancer, Dialysis, Renal Failure, Renal Problems Genitourinary: No history of: Bladder Problem, Kidney Stones, Recurring Urinary Tract Infections, Genitourinary Cancer, Problems Gastrointestinal: History of: GERD Hematology: History of: Anemia Other: History of: Skin Problems (right leg lesion removed) - Surgical History Cardiac Surgeries: Patient Denies: Femoral-Popliteal Bypass Graft, Cardiac Catheterization, Cardiac Surgery, Carotid Endarterectomy, Internal Defibrillator, Vascular Access Devices Thoracic Surgeries: Patient denies;: Kidney (Renal Surgery), Lithotripsy, Nephrectomy, Lobectomy HEENT Surgeries: Patient denies: Carotid Endarterectomy, Eye Surgery, Thyroid Surgery, Tonsilectomy & Adenoidectomy Abdominal Surgeries: Surgical HX of: EGD Patient denies: Abdominal Surgery, Appendectomy, Cholecystectomy, Colonoscopy , Gastric Bypass Surgery, Hernia Repair, Splenectomy Reproductive Surgeries: Surgical HX of;: Hysterectomy Patient denies;: Cystoscopy, Genitourinary Surgery - Family History Family History: Reports;: Family Diabetes, Family Hypertension, Family Psychiatric Problems (daughter (nervous break down)) Denies;: Family Anesthesia Reaction, Family Cancer, Family Heart Disease, Family Hematology, Family Stroke, Additional Family History - Social History Smoking Status: Never smoker Frequency of Alcohol Use: None Type of Drug Use: None Exam - Constitutional Vitals: Period Temp Pulse Resp BP Sys/Johnson Pulse Ox Last 24 Hr 97.4 F-100.2 F 65-122 18-22 101-117/66-71 91-99 Exam: GENERAL: Patient is in no acute distress. NECK: Neck is supple. There is no JVD. No carotid bruits present. No thyroid masses. Face is swollen CVS: First and second heart sounds are normal. There is no S3 present. Regular rate and rhythm. RESPIRATORY: Lungs are clear to auscultation without any rales or rhonchi. ABDOMEN: Soft and non-tender. Bowel sounds are present. There is no hepatosplenomegaly. EXT: There is no palpable edema. Peripheral pulses are present. Skin: No rashes Central Nervous system: General: Alert, awake and Oriented x 3 Speech: Fluent Comprehension: Intact and normal Facial expressions: Normal Cranial Nerves: CN1/Olfactory: Normal CN II/ Optic: Normal, Visual Siegel unreliable CN III, and : COURTNEY & EOMI CN V: Normal & intact CN VII: face is symmetric CNVIII: Normal CN XI/X/XI/XII: Intact and Normal Motor: Bulk and Tone is normal. Strength in the right 3-4/5 Strength in the left 3-4/5 Sensory: Grossly intact for all the modalities of PP, LT and temp sense Reflexes: 1+ and symmetrical Cerebellar function: Normal finger to nose and heel to vasquez testing. Toes: Equivocal Gait: Not tested at this time Assessment: Seizure-like activity. The duration of episode was too long to call a seizure but given her history of stroke, that possibility cannot be excluded entirely. Recommendations/plan: Hold off to any AEDs MRI of the brain without EEG Thank you for the consult Results - Labs CBC & BMP: 04/27/17 06:47 04/27/17 06:47
--- NOTE | 2017-04-27 17:06 | Magnetic Resonance Report ---
MR head/brain wo con Indication: Syncope. MRI BRAIN WITHOUT CONTRAST Technique: Multiplanar noncontrast MR images of the brain were obtained. Comparison: None. Findings: Left parotid gland mass measuring 58 x 52 mm is present, better demonstrated on CT. No restricted diffusion within the brain. Patchy T2 and FLAIR hyperintensities are present within the deep white matter both convexities, somewhat more focally involving the left frontal lobe where there is encephalomalacia from prior left frontal infarct along the JOSH territory. Generalized atrophy is present. Craniocervical junction is unremarkable. No mass or mass effect identified. No evidence of hemorrhage. Empty sella turcica noted, similar to the previous exam. Orbits are symmetric. Internal auditory canals are symmetric. Old infarct right cerebellum noted. Impression: 1. No acute intracranial pathology. 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 Generalized atrophy and chronic small vessel ischemic change. 2. Empty sella turcica. This is unchanged from earlier study. 3. Left parotid mass. PROCEDURE INTERPRETED AT [facility] DEPARTMENT OF RADIOLOGY Final Report Signed by: Levar Ku M.D.
[2017-04-27] MEDS: DIGOXIN 0.125 MG TABLET PO SCH (17:11)
[2017-04-27] MEDS: SPIRONOLACTONE 25 MG TABLET PO SCH (17:11)
[2017-04-27] MEDS: metFORMIN 500 MG TABLET PO SCH (17:11)
[2017-04-27] MEDS: CARVEDILOL 3.125 MG TABLET PO SCH (17:11)
--- NOTE | 2017-04-27 18:19 | Cardiology Consult Note ---
Lawrence Chan Lesley, VEENA, am scribing for, and in the presence of, Gudelia Purvis MD 18:19. Assessment and Plan - Time spent with patient Time spent with patient: Greater than 30 minutes (Record review, examination, and documentation) (1) Acute parotitis Status: Acute Assessment and plan: SEE PLAN OF CARE LISTED BELOW Current Visit: Yes (2) Elevated troponin Status: Chronic Assessment and plan: SEE PLAN OF CARE LISTED BELOW Current Visit: Yes (3) Renal insufficiency Status: Chronic Assessment and plan: SEE PLAN OF CARE LISTED BELOW Current Visit: Yes (4) Diabetes mellitus Status: Chronic Assessment and plan: SEE PLAN OF CARE LISTED BELOW Current Visit: Yes Qualifiers: Diabetes mellitus type: type 2 Diabetes mellitus complication status: with skin complications Diabetes mellitus complication detail: with dermatitis (5) Atrial fibrillation Status: Chronic Assessment and plan: SEE PLAN OF CARE LISTED BELOW Current Visit: No (6) Congestive heart failure Status: Chronic Assessment and plan: SEE PLAN OF CARE LISTED BELOW Current Visit: No (7) Essential hypertension Status: Chronic Assessment and plan: SEE PLAN OF CARE LISTED BELOW Current Visit: No (8) Preop cardiovascular exam Status: Acute Current Visit: Yes History of Present Illness - Data of Consult Patient: known to practice within the last 3 years Consult date: 04/27/17 - Consult Narrative Reason for consult: Elevated troponin History of present illness: [employer] WORKER: Dr. Moralse Ms. Garcia is a 76 year old BF, who is an established patient with Dr. Morales. The patient was last seen in the [facility] by Dr. Morales on 11/03/2016. The patient has cardiac history significant for chronic atrial fibrillation, congestive heart failure, cardiomyopathy, hypertension, diabetes type 2, dyslipidemia, obesity, advanced age. Echocardiogram most recent 09/2015 revealed cardiomegaly involving all 4 chambers. Severely depressed LV systolic function without hypertrophy. Estimated LVEF 10%, grade 3-4 diastolic dysfunction. Severe pulmonary hypertension with severe TR, moderate MR. Small to moderate pericardial effusion without echocardiographic signs of tamponade on, pleural effusion. EKG done 11/2016 revealed atrial fibrillation. The patient states she was told to stop her anticoagulants several years ago, she reports she only takes an aspirin. She she is unable to convey why her anticoagulants were stopped. The patient was seen and examined today. She was awake alert lying in bed eating lunch. The patient denies complaints of chest pain, tightness, or heaviness. She denies complaints of shortness of breath, diaphoresis, nausea, vomiting, or diarrhea. The patient has severely enlarged left jaw that is tender. Labs reviewed, troponin remains flat at 0.148, 0.182, and 0.173. Reviewing troponin lab values from a hospital admission in 2016, troponins were similarly elevated at 0.171, 0.179, 0.188, 0.196. Creatinine currently at 1.2. Potassium 3.4. WBC is 26.1, hemoglobin and hematocrit 10 and 31 respectively. Vital signs remained stable, blood pressure 101/66 today, heart rate in the 90s. Chest x-ray shows moderate to severe cardiomegaly that is stable, lungs are hypoinflated with central pulmonary vascular no definite infiltrate seen however left lung base is somewhat obscured. Carotid Doppler revealed 16-49% diameter reduction narrowing of either internal carotid artery, no hemodynamically significant internal carotid artery stenosis. ASSESSMENT/PLAN: 1. ACUTE PAROTITIS -IV antibiotics, evaluated by ENT 2. ELEVATED TROPONIN -remained flat, elevated similarly on previous admission. It is unclear to me why these were even ordered, perhaps because she had jaw pain, but this appears to be related to her acute problem of parotitis. 3. CHRONIC RENAL INSUFFICIENCY -continue to monitor 4. DIABETES MELLITUS -Accu-Cheks with SSI. 5. CHRONIC ATRIAL FIBRILLATION -continue aspirin, patient reports she was taken off anticoagulant over one year ago. 6. CONGESTIVE HEART FAILURE -continue medications and closely monitor. 7. HYPERTENSION -controlled, continue medications and monitoring. 8. CARDIOMYOPATHY -last echo reported EF 10%, will repeat echo. In terms of her surgical risk, we will be better to reassess this when we see what her current systolic function is. She does not appear to be in decompensated heart failure, nor does she appear to have an acute coronary syndrome. With her cardiomyopathy she will likely be in the high intermediate risk category, but her acute refractory infection may warrant proceeding. Again we will reevaluate after her echo was collected. We will also check an ECG. CC: Eduardo Smith - Home Medications and Allergies Home Medications: Home Medications Medication Instructions Recorded Confirmed Type Aspirin [Ecotrin] 81 mg PO QAM 09/20/15 04/26/17 History Digoxin Tab [Lanoxin Tab] 0.125 mg PO QOTHER DAY 09/20/15 04/26/17 History Losartan [Cozaar] 25 mg PO DAILY 09/20/15 04/26/17 History Magnesium Oxide [Magox 400] 400 mg PO BID 09/20/15 04/26/17 History Omeprazole [Prilosec] 20 mg PO DAILY 09/20/15 04/26/17 History Furosemide Tab [Lasix Tab] 80 mg PO BID DIURETIC #60 tablet 09/24/15 04/26/17 Rx Albuterol Inhaler [Proventil 2 puff INH Q4H PRN 04/26/17 04/26/17 History Inhaler] Carvedilol [Coreg] 3.125 mg PO BID W/MEALS 04/26/17 04/26/17 History Ferrous Sulfate Tab [Feosol 325 mg PO BID 04/26/17 04/26/17 History Original Tab] Latanoprost 0.005% Oph Soln 2 drops BOTH EYES BEDTIME 04/26/17 04/26/17 History [Xalatan 0.005% Oph Soln] Linagliptin [Tradjenta] 5 mg PO DAILY 04/26/17 04/26/17 History Potassium Chloride 10 meq PO QOTHER DAY 04/26/17 04/26/17 History Spironolactone [Aldactone] 25 mg PO BID DIURETIC 04/26/17 04/26/17 History hydrALAZINE TAB [Apresoline Tab] 25 mg PO BID 04/26/17 04/26/17 History metFORMIN [Glucophage] 1,000 mg PO DAILY W/BREAKFAST 04/26/17 04/26/17 History metFORMIN [Glucophage] 500 mg PO QPM 04/26/17 04/26/17 History Allergies/Adverse Reactions: Allergies Allergy/AdvReac Type Severity Reaction Status Date / Time No Known Allergies Allergy Verified 04/26/17 17:18 - Constitutional Constitutional: Absent: fatigue - EENT Eyes: Absent: blurry vision Nose, mouth and throat: Absent: headache(s) - Cardiovascular Cardiovascular: Present: edema. Absent: chest pain at rest, chest pain with activity, diaphoresis, dyspnea, orthopnea, palpitations - Respiratory Respiratory: Absent: cough, dyspnea, dyspnea on exertion, wheezing - Gastrointestinal Gastrointestinal: Absent: abdominal pain, coffee ground emesis, melena, nausea - Genitourinary Genitourinary: Absent: difficulty urinating - Psychiatric Psychiatric: Absent: anxiety, depression - Hematologic/Lymphatic Hematologic/Lymphatic: Absent: easy bleeding Medical,Surgical,& Family Hx - Medical History Cardio: History of: Cardiac Dysrhythmia (atrial fib), Cerebrovascular Disease, CHF (nonischemic cardiomyopathy with EF of 20%), CAD (CARDIOMYOPATHY WITH REGURG ), Hypertension, Valvular Heart Disease, Cardiovascular Problems No history of: Aneurysm, Congenital Heart Disease, [place], Pacemaker, PVD Psychological: No history of: Anxiety Disorders, Depression Neurology: History of: Cerebrovascular Accident, TIA No history of: Seizures HEENT: History of: Eye Problem (CATARACT L EYE), Glaucoma, HEENT Problems ( parotitis) Endocrine: History of: Diabetes Mellitus (IDDM), Dyslipidemia No history of: Diabetes Mellitus (NIDDM) Rheumatology: History of;: Gout Respiratory: History of: COPD, Obstructive Sleep Apnea No history of: Asthma, Bronchitis, Intubation, Pulmonary Embolism, Pulmonary Hypertension, Pneumonia, Lung Cancer, Respiratory Problems Renal: No history of: Renal (Kidney) Cancer, Dialysis, Renal Failure, Renal Problems Genitourinary: No history of: Bladder Problem, Kidney Stones, Recurring Urinary Tract Infections, Genitourinary Cancer, Problems Gastrointestinal: History of: GERD Hematology: History of: Anemia Other: History of: Skin Problems (right leg lesion removed) - Surgical History Cardiac Surgeries: Patient Denies: Femoral-Popliteal Bypass Graft, Cardiac Catheterization, Cardiac Surgery, Carotid Endarterectomy, Internal Defibrillator, Vascular Access Devices Thoracic Surgeries: Patient denies;: Kidney (Renal Surgery), Lithotripsy, Nephrectomy, Lobectomy HEENT Surgeries: Patient denies: Carotid Endarterectomy, Eye Surgery, Thyroid Surgery, Tonsilectomy & Adenoidectomy Abdominal Surgeries: Surgical HX of: EGD Patient denies: Abdominal Surgery, Appendectomy, Cholecystectomy, Colonoscopy , Gastric Bypass Surgery, Hernia Repair, Splenectomy Reproductive Surgeries: Surgical HX of;: Hysterectomy Patient denies;: Cystoscopy, Genitourinary Surgery - Family History Family History: Reports;: Family Diabetes, Family Hypertension, Family Psychiatric Problems (daughter (nervous break down)) Denies;: Family Anesthesia Reaction, Family Cancer, Family Heart Disease, Family Hematology, Family Stroke, Additional Family History - Social History Smoking Status: Never smoker Frequency of Alcohol Use: None Type of Drug Use: None Physical Examination Vital Signs Temp Pulse Resp BP Pulse Ox 100.2 F H 122 H 22 110/71 91 L 04/26/17 17:08 04/26/17 17:08 04/26/17 17:08 04/26/17 17:08 04/26/17 17:08 Exam: General: Appears well with no apparent distress. Pleasant and cooperative. Appears comfortable. HEENT: PERRL, normocephalic, atraumatic. Mucous membranes moist. No jaundice noted. Conjunctiva moist and clear, sclerae anicteric. Left jaw/parotid severely enlarged and tender. Neck: No JVD/HJR, no thyromegaly or lymphadenopathy noted. No carotid bruit appreciated. Cardiac: Irregular rate and rhythm. No murmur rub or gallop. PMI is nondisplaced. Lungs: Clear to auscultation without accessory muscle use to assist the respiratory pattern. Oxygen in use via nasal cannula. Abdomen: Soft, bowel sounds normoactive. Nontender and nondistended. No abdominal bruit or thrill noted. No masses noted. Musculoskeletal: Full range of motion is noted of all extremities in bed. Extremities: No clubbing, cyanosis noted. Trace edema noted bilateral lower extremity. Upper extremity pulses 2+. Lower extremity pulses 2+. Capillary refill less than 3 seconds. Skin: No unusual lesions or rashes. No skin breakdown appreciated. Neuro: Awake, alert and oriented 3. Moves all extremities well without hemiparesis or paralysis. No essential tremor is appreciated. Result/EKG - Labs CBC & BMP: 04/27/17 06:47 04/27/17 06:47 Lab Results: I have reviewed the past 24 hour labs Labs: Laboratory Results - last 24 hr 04/26/17 04/26/17 04/26/17 02:45 18:55 18:55 WBC 24.1 H RBC 4.04 Hgb 10.1 L Hct 30.0 L MCV 74.3 L MCH 25 L MCHC 33.7 RDW 19.8 H Plt Count 321 MPV 9.5 L Neut % (Auto) 94.0 H Lymph % (Auto) 2.4 L Routt % (Auto) 2.7 Eos % (Auto) 0.0 Baso % (Auto) 0.2 Neut # (Auto) 22.6 H Lymph # (Auto) 0.6 L Routt # (Auto) 0.7 Eos # (Auto) 0.0 Baso # (Auto) 0.0 Total Counted 100 Immature Gran % 0.7 Nucleated RBC % 0.1 Immature Gran # 0.17 Segmented Neutrophils 96 H Band Neutrophils 1 Lymphocytes 1 L Monocytes 2 Nucleated RBCs # 0.02 Platelet Estimate Adequate Immature Plt Fraction 0.0 Hypochromasia 2+ Poikilocytosis 1+ Microcytosis Target Cells Few Ovalocytes 1+ ESR Westergren 95 H Sodium 136 Potassium 3.1 L Chloride 95 L Carbon Dioxide 35 H Anion Gap 9.1 BUN 24 H Creatinine 1.40 H GFR Calculation 47 BUN/Creatinine Ratio 17.00 Glucose 162 H POC Glucose Calculated Osmolality 279.0 Calcium 8.9 Total Bilirubin 2.10 H AST 12 ALT 12 L Alkaline Phosphatase 81 Lactate Dehydrogenase 198 Total Creatine Kinase CK-MB (CK-2) Troponin I C-Reactive Protein 16.30 H Total Protein 7.7 Albumin 2.9 L Globulin 4.8 H Albumin/Globulin Ratio 0.6 L Amylase 45 Lipase 65.0 L Urine Color Nelida Urine Appearance Clear Urine pH 5.0 Ur Specific [place] 1.016 Urine Protein 100 Urine Glucose (UA) Negative Urine Ketones Negative Urine Blood Negative Urine Nitrate Negative Urine Bilirubin Negative Urine Urobilinogen 4.0 H Urine Leukocytes Negative Urine RBC 2 Urine WBC 1 Ur Squamous Epith Cells Occasional Urine Mucus Occasional Ur Culture Indicated? Not indicated 04/26/17 04/26/17 04/27/17 18:55 21:36 06:47 WBC 26.1 H RBC 4.14 Hgb 10.1 L Hct 31.2 L MCV 75.4 L MCH 24 L MCHC 32.4 RDW 20.2 H Plt Count 361 MPV 10.1 Neut % (Auto) 90.8 H Lymph % (Auto) 3.1 L Routt % (Auto) 4.2 Eos % (Auto) 0.0 Baso % (Auto) 0.2 Neut # (Auto) 23.7 H Lymph # (Auto) 0.8 L Routt # (Auto) 1.1 H Eos # (Auto) 0.0 Baso # (Auto) 0.0 Total Counted 100 Immature Gran % 1.7 Nucleated RBC % 0.0 Immature Gran # 0.45 Segmented Neutrophils 90 H Band Neutrophils 4 Lymphocytes 3 L Monocytes 3 Nucleated RBCs # 0.00 Platelet Estimate Normal Immature Plt Fraction 0.0 Hypochromasia 2+ Poikilocytosis Microcytosis 1+ Target Cells Ovalocytes Slight ESR Westergren Sodium Potassium Chloride Carbon Dioxide Anion Gap BUN Creatinine GFR Calculation BUN/Creatinine Ratio Glucose POC Glucose 191 H Calculated Osmolality Calcium Total Bilirubin AST ALT Alkaline Phosphatase Lactate Dehydrogenase Total Creatine Kinase 78 CK-MB (CK-2) < 1.0 Troponin I 0.148 H C-Reactive Protein Total Protein Albumin Globulin Albumin/Globulin Ratio Amylase Lipase Urine Color Urine Appearance Urine pH Ur Specific [place] Urine Protein Urine Glucose (UA) Urine Ketones Urine Blood Urine Nitrate Urine Bilirubin Urine Urobilinogen Urine Leukocytes Urine RBC Urine WBC Ur Squamous Epith Cells Urine Mucus Ur Culture Indicated? 04/27/17 04/27/17 04/27/17 06:47 06:47 07:31 WBC RBC Hgb Hct MCV MCH MCHC RDW Plt Count MPV Neut % (Auto) Lymph % (Auto) Routt % (Auto) Eos % (Auto) Baso % (Auto) Neut # (Auto) Lymph # (Auto) Routt # (Auto) Eos # (Auto) Baso # (Auto) Total Counted Immature Gran % Nucleated RBC % Immature Gran # Segmented Neutrophils Band Neutrophils Lymphocytes Monocytes Nucleated RBCs # Platelet Estimate Immature Plt Fraction Hypochromasia Poikilocytosis Microcytosis Target Cells Ovalocytes ESR Westergren Sodium 141 Potassium 3.4 L Chloride 98 Carbon Dioxide 35 H Anion Gap 11.4 BUN 22 H Creatinine 1.20 H GFR Calculation 57 BUN/Creatinine Ratio 18.00 Glucose 157 H POC Glucose 168 H Calculated Osmolality 286.3 Calcium 9.3 Total Bilirubin 2.10 H AST 11 ALT 13 Alkaline Phosphatase 67 Lactate Dehydrogenase Total Creatine Kinase 68 CK-MB (CK-2) < 1.0 Troponin I 0.182 H D C-Reactive Protein Total Protein 7.5 Albumin 2.7 L Globulin 4.8 H Albumin/Globulin Ratio 0.5 L Amylase Lipase Urine Color Urine Appearance Urine pH Ur Specific [place] Urine Protein Urine Glucose (UA) Urine Ketones Urine Blood Urine Nitrate Urine Bilirubin Urine Urobilinogen Urine Leukocytes Urine RBC Urine WBC Ur Squamous Epith Cells Urine Mucus Ur Culture Indicated? 04/27/17 04/27/17 09:39 11:28 WBC RBC Hgb Hct MCV MCH MCHC RDW Plt Count MPV Neut % (Auto) Lymph % (Auto) Routt % (Auto) Eos % (Auto) Baso % (Auto) Neut # (Auto) Lymph # (Auto) Routt # (Auto) Eos # (Auto) Baso # (Auto) Total Counted Immature Gran % Nucleated RBC % Immature Gran # Segmented Neutrophils Band Neutrophils Lymphocytes Monocytes Nucleated RBCs # Platelet Estimate Immature Plt Fraction Hypochromasia Poikilocytosis Microcytosis Target Cells Ovalocytes ESR Westergren Sodium Potassium Chloride Carbon Dioxide Anion Gap BUN Creatinine GFR Calculation BUN/Creatinine Ratio Glucose POC Glucose 219 H Calculated Osmolality Calcium Total Bilirubin AST ALT Alkaline Phosphatase Lactate Dehydrogenase Total Creatine Kinase 58 CK-MB (CK-2) < 1.0 Troponin I 0.173 H C-Reactive Protein Total Protein Albumin Globulin Albumin/Globulin Ratio Amylase Lipase Urine Color Urine Appearance Urine pH Ur Specific [place] Urine Protein Urine Glucose (UA) Urine Ketones Urine Blood Urine Nitrate Urine Bilirubin Urine Urobilinogen Urine Leukocytes Urine RBC Urine WBC Ur Squamous Epith Cells Urine Mucus Ur Culture Indicated? I, Gudelia Purvis MD, personally performed the services described in this documentation, ascribed by Eleni Bravo NP in my presence, and it is both accurate and complete .
[2017-04-27] MEDS: hydrALAZINE 25 MG TABLET PO SCH (22:10)
[2017-04-27] MEDS: ENOXAPARIN 40 MG/0.4 ML SYRINGE SUBCUT SCH (22:12)
[2017-04-27] MEDS: FERROUS SULFATE 325 MG TABLET PO SCH (22:13)
[2017-04-27] MEDS: MAGNESIUM OXIDE 400 MG TABLET PO SCH (22:13)
[2017-04-27] MEDS: LATANOPROST 0.005% OPH SOLN 2.5 ML BOTTLE BOTH EYES SCH (22:18)
[2017-04-28] MEDS: PIPERACILLIN/TAZOBACTAM 3,375 MG in SODIUM CHLORIDE 0.9% 100 ML IV SCH ×3 (05:12→22:02)
[2017-04-28 05:32] LABS: Basophils # 0.1 10*3/uL (0.0-0.2); Basophils % 0.3 % (0.0-0.8); Eosinophils # 0.1 10*3/uL (0.0-0.87); Eosinophils % 0.3 % (0.00-10.9); Hemoglobin 9.5 GM/DL (12.0-16.0); Immature Granulocytes % 0.9 %; Immature Granulocytes Absolute 0.16 #; Lymphocytes # 0.8 10*3/uL (1.4-4.0); Lymphocytes % 4.5 % (21.3-54.2); Mean Corpuscular HGB Conc 32.8 GM/DL (32-36); Mean Corpuscular Hemoglobin 25 PG (27-34); Mean Corpuscular Volume 75.5 FL (87-102); Mean Platelet Volume 10.3 FL (9.6-12.0); Monocytes # 1.2 10*3/uL (0.11-0.8); Monocytes % 6.4 % (1.7-12.7); Neutrophils # 15.9 10*3/uL (1.4-7.4); Neutrophils % 87.6 % (38.7-73.9); Platelet Count 345 T/CUMM (130-400); Red Blood Count 3.84 MC/CUMM (3.8-5.5); Red Cell Distribution Width 19.9 % (9.3-17.3); White Blood Count 18.1 T/CUMM (4-12)
[2017-04-28 05:58] LABS: Eosinophils 1 % (0-10); Hypochromasia 1+; Lymphocytes 5 % (20-55); Microcytosis 1+; Segmented Neutrophils 89 % (50-85); Total Cells Counted 100
[2017-04-28 06:00] LABS: Calcium 8.9 MG/DL (8.5-10.1); Osmolality,Calculated 286.3 MOS/KG (273-304); Potassium 3.5 MMOL/L (3.5-5.1)
--- NOTE | 2017-04-28 07:52 | Progress Note ---
Assessment and Plan - Time spent with patient Time spent with patient: Less than 30 minutes (1) Acute parotitis Status: Acute Assessment and plan: I agree with current treatment I would add sialagogues such as lemon drops I discussed this with her daughter additionally I recommend a K pad or heating pad to help with carotid flow. Additionally I recommend and demonstrated parotid massage and other effleurage techniques that may help with drainage. After reviewing the CT and the fact that she has multiple medical comorbidities and sepsis she may benefit from at least attempting to open the parotid duct and seen if we can get some of this draining. I will reevaluate tomorrow and if she is not drastically improving we may consider a minimal procedure on Tuesday to open things up. Additionally if this continues and does not markedly improve we may need to discuss parotidectomy in the near future. You very much for consulting me on this case I will continue to follow throughout the entirety of her stay. 04/28/2017 I will plan tentatively on placing her on the surgery schedule for parotid duct dilation and irrigation. Risks and benefits were discussed and her family desired to proceed with the surgery. We will await risk stratification and echo to be performed today by cardiology if this comes back as expected we will continue if not we will hold on the surgery. I will defer to cardiology's recommendations. Current Visit: Yes (2) H/O parotitis Status: Acute Current Visit: Yes (3) Trismus Status: Acute Current Visit: Yes (4) Sepsis Status: Acute Current Visit: Yes Qualifiers: Sepsis type: sepsis due to unspecified organism Qualified Code(s): A41.9 - Sepsis, unspecified organism Family Medicine PN Sub Interval history: 76-year-old female with acute left parotiditis on IV antibiotics, sialagogues and heat therapy with massage for 48 hours with minimal to no improvement. In light of her other comorbid conditions that are being exacerbated secondary to this acute exacerbation of chronic parotiditis I recommend dilation and irrigation of her parotid duct. I spoke with cardiology last night and they will perform an echo to determine how her most recent cardiac function is but clinically she may be as optimized as she can be for a short surgical procedure. Exam (Progress Note) - Constitutional Vitals: Period Temp Pulse Resp BP Sys/Johnson Pulse Ox Last 24 Hr 97.5 F-100.2 F 65-96 18-20 95-112/54-75 90-98 General appearance: mild distress, over weight - Head Head exam: Present: other (Large woody hard indurated left parotid consistent with an acute exacerbation of chronic parotiditis) - Eye Eye exam: Present: EOMI Pupils: Present: COURTNEY - ENT ENT exam: Present: normal exam, other (Noted trismus secondary to the parotiditis also left external auditory canal is markedly tender and difficult to evaluate the tympanic membrane or external canal because of the parotiditis) - Neck Neck exam: Present: lymphadenopathy, tenderness - Respiratory Respiratory exam: Present: other (No gross shortness of breath or difficulty breathing) - Cardiovascular Cardiovascular exam: Present: other (She has a history of CHF and will have a echo to determine her most recent ejection fraction to stratify risk of a procedure tomorrow) - GI/Abdominal GI/Abdominal exam: Present: soft - Extremities Exam Extremities exam: Present: normal inspection, normal capillary refill - Neurological Exam Neurological exam: Present: alert, oriented X3, CN II-XII intact - Psychiatric Psychiatric exam: Present: normal affect, normal mood - Skin Skin exam: Present: normal color, warm Results - Labs CBC & BMP: 04/28/17 04:55 04/28/17 04:55 Lab Results: I have reviewed the past 24 hour labs - Diagnostic Findings Procedure: CT: pending, image reviewed by me, report reviewed by me (No gross parotid abscess that would allow for transcutaneous needle drainage visible on CT)
--- NOTE | 2017-04-28 08:14 | EKG Report ---
Stationary ECG Study [facility] Test Date: 04/28/2017 8:12:45 AM Pat Name: CLARA JENSEN Department: Room: 240 Gender: F Service Delivery Management Consultant: LOU : 1940 Requested by: Gudelia Purvis Order Number: [id number] Reading MD: LEILA YAÑEZ Intervals [place] Rate: 97 P: 999 DE: 0 QRS: -33 QRSD: 120 T: 81 QT: 397 QTc: 452 Interpretive Statements ATRIAL FIBRILLATION WITH ABERRANT CONDUCTION OR VENTRICULAR PREMATURE COMPLEXES INFERIOR MYOCARDIAL INFARCTION, OF INDETERMINATE AGE Electronically Signed On 04-29-17 07:04:23 CDT by LEILA YAÑEZ [email or web address]
[2017-04-28] MEDS: SPIRONOLACTONE 25 MG TABLET PO SCH ×2 (08:44→16:26)
[2017-04-28] MEDS: FERROUS SULFATE 325 MG TABLET PO SCH ×2 (08:44→22:04)
[2017-04-28] MEDS: metFORMIN 500 MG TABLET PO SCH ×2 (08:44→16:26)
[2017-04-28] MEDS: ASPIRIN EC 81 MG TABLET PO SCH (08:45)
[2017-04-28] MEDS: sitaGLIPtin 100 MG TABLET PO SCH (08:45)
[2017-04-28] MEDS: hydrALAZINE 25 MG TABLET PO SCH ×2 (08:45→22:04)
[2017-04-28] MEDS: CARVEDILOL 3.125 MG TABLET PO SCH ×2 (08:45→16:26)
[2017-04-28] MEDS: PANTOPRAZOLE 40 MG TABLET PO SCH (08:46)
[2017-04-28] MEDS: LOSARTAN 50 MG TABLET PO SCH (08:46)
[2017-04-28] MEDS: MAGNESIUM OXIDE 400 MG TABLET PO SCH ×2 (08:46→22:04)
[2017-04-28] MEDS: SODIUM CHLOR 0.9% KCL 40 MEQ 40 MEQ/1,000 ML BAG IV SCH ×2 (08:47→21:59)
[2017-04-28] MEDS ORDERED: NON-FORMULARY MEDICATION (Omeprazole [Prilosec] 20 MG) PO SCH (09:00)
--- NOTE | 2017-04-28 10:09 | Hospitalist Progress Note ---
Assessment and Plan (1) Elevated troponin Status: Chronic Assessment and plan: Troponins today have been 0.183 and 0.172. Her troponins may be elevated secondary to renal insufficiency. Cardiology has been consulted. Current Visit: Yes (2) Renal insufficiency Status: Chronic Assessment and plan: Today her BUN is 24 and creatinine 1.2. She is being treated with intravenous normal saline. It is unclear if this is acute on chronic renal failure. Current Visit: Yes (3) Nonischemic cardiomyopathy Status: Chronic Assessment and plan: There is no evidence of the present time of acute congestive heart failure. Current Visit: No (4) Diabetes mellitus Status: Chronic Assessment and plan: She has type 2 diabetes mellitus. She is presently being treated with Metformin and linaglitide. She is being treated in the hospital with sliding scale regular insulin coverage. Current Visit: Yes Qualifiers: Diabetes mellitus type: type 2 Diabetes mellitus complication status: with skin complications Diabetes mellitus complication detail: with dermatitis (5) Sepsis Status: Acute Assessment and plan: She is hemodynamically stable. She is being treated with intravenous Zosyn. Current Visit: Yes Qualifiers: Sepsis type: sepsis due to unspecified organism Qualified Code(s): A41.9 - Sepsis, unspecified organism (6) Syncope Status: Acute Assessment and plan: She has experienced no recurrent such episodes. It is probable that her syncope is secondary to her sepsis. Current Visit: Yes (7) Acute parotitis Status: Acute Assessment and plan: She is being treated with intravenous Zosyn. She is to undergo parotid duct dilation and irrigation today. Current Visit: Yes Hospitalist: Subjective Interval history: She is scheduled for surgery today to undergo parotid duct dilation and irrigation. She is generally doing well at the present time. She states that she is experiencing minimal pain. She has been evaluated by neurology who is found no acute abnormalities. Exam - Constitutional Vitals: Period Temp Pulse Resp BP Sys/Johnson Pulse Ox Last 24 Hr 97.2 F-100.2 F 87-104 18-20 95-176/54-75 90-94 General appearance: no acute distress - Respiratory Respiratory exam: Present: clear to auscultation bilaterally - Cardiovascular Cardiovascular exam: Present: regular rate and rhythm - GI/Abdominal GI/Abdominal exam: Present: normal bowel sounds, soft, other (Nontender with no palpable masses or hepatosplenomegaly.) - Extremities Exam Extremities exam: Present: normal inspection - Neurological Exam Neurological exam: Present: alert, oriented X3 - Skin Skin exam: Present: normal color, warm, intact Results - Labs CBC & BMP: 04/28/17 04:55 04/28/17 04:55
--- NOTE | 2017-04-28 14:53 | ECHO Report ---
Samantha Garcia Exam Date: 04/28/2017 09:21 Referring Physician: Technologist: Usha Gongora Age: 76 Ht (in): 65 Wt (lb): 166 Gender: F Exam Location: [facility] Echo Indications: Dm, A fib, CHF, HTN, renal insuff., elevated troponin, sepsis, parotitis BP: 105 / 75 HR: 87 Rhythm: Sinus Technical Quality: Good IMPRESSIONS Severely reduced LV systolic function with regional wall motion as described below. Biatrial enlargement. Biventricular dilation and hypokinesis. Moderate to severe mitral regurgitation. Severe tricuspid regurgitation. Trace pulmonic regurgitation. Small pericardial effusion. MEASUREMENTS (Male / Female) Normal Values 2D ECHO LV Diastolic Diameter PLAX 6.3 cm 4.2 - 5.9 / 3.9 - 5.3 cm LV Systolic Diameter PLAX 6.1 cm LV Fractional Shortening PLAX 4.6 % IVS Diastolic Thickness 0.9 cm 0.6 - 1.0 / 0.6 - 0.9 cm LVPW Diastolic Thickness 1.0 cm 0.6 - 1.0 / 0.6 - 0.9 cm Aortic Root Diameter 2.8 cm LA Systolic Diameter LX 5.4 cm 3.0 - 4.0 / 2.7 - 3.8 cm DOPPLER TR Peak Velocity 320.0 cm/s TR Peak Gradient 41.0 mmHg FINDINGS Left Ventricle Moderately increased left ventricular cavity size. Severely decreased left ventricular systolic function, left ventricular ejection fraction is at estimated at 15%. There is global hypokinesis and abnormal septal motion consistent with underlying bundle branch block. There is normal diastolic function. Right Ventricle Severely Moderately increased right ventricular size. Right Atrium Moderately increased right atrial size. Left Atrium Moderately increased left atrial size. Mitral Valve Mildly thickened mitral valve with moderate to severe mitral regurgitation. Aortic Valve The aortic valve is trileaflet and has normal motion. Tricuspid Valve Morphologically normal tricuspid valve. Severe tricuspid valve regurgitation. Tricuspid regurgitation velocities suggest a PAP of 41.0 mmHg + RAP. Pulmonic Valve Morphologically normal pulmonic valve. Trace pulmonary valve regurgitation. Pericardium Small pericardial effusion. Aorta Normal size aortic root and proximal ascending aorta. Gudelia Purvis MD (Electronically Signed) Final Date: 28 April 2017 14:52
--- NOTE | 2017-04-28 17:52 | Cardiology Progress Note ---
Lawrence Chan Lesley, VEENA, am scribing for, and in the presence of, Gudelia Purvis MD 17:52. Assessment and Plan - Time spent with patient Time spent with patient: Greater than 30 minutes (record review, assessment, and documentation) (1) Acute parotitis Status: Acute Assessment and plan: SEE PLAN OF CARE LISTED BELOW Current Visit: Yes (2) Elevated troponin Status: Chronic Assessment and plan: SEE PLAN OF CARE LISTED BELOW Current Visit: Yes (3) Renal insufficiency Status: Chronic Assessment and plan: SEE PLAN OF CARE LISTED BELOW Current Visit: Yes (4) Diabetes mellitus Status: Chronic Assessment and plan: SEE PLAN OF CARE LISTED BELOW Current Visit: Yes Qualifiers: Diabetes mellitus type: type 2 Diabetes mellitus complication status: with skin complications Diabetes mellitus complication detail: with dermatitis (5) Atrial fibrillation Status: Chronic Assessment and plan: SEE PLAN OF CARE LISTED BELOW Current Visit: No (6) Congestive heart failure Status: Chronic Assessment and plan: SEE PLAN OF CARE LISTED BELOW Current Visit: No (7) Essential hypertension Status: Chronic Assessment and plan: SEE PLAN OF CARE LISTED BELOW Current Visit: No Cardiology - PN: Subj Interval history: LEAD QUALITY TECHNICIAN: Dr. Morales Ms. Garcia is a 76 year old BF, who is an established patient with Dr. Morales. The patient was last seen in the [facility] by Dr. Morales on 11/03/2016. The patient has cardiac history significant for chronic atrial fibrillation, congestive heart failure, cardiomyopathy, hypertension, diabetes type 2, dyslipidemia, obesity, advanced age. Echocardiogram most recent 09/2015 revealed cardiomegaly involving all 4 chambers. Severely depressed LV systolic function without hypertrophy. Estimated LVEF 10%, grade 3-4 diastolic dysfunction. Severe pulmonary hypertension with severe TR, moderate MR. Small to moderate pericardial effusion without echocardiographic signs of tamponade on, pleural effusion. EKG done 11/2016 revealed atrial fibrillation. The patient states she was told to stop her anticoagulants several years ago, she reports she only takes an aspirin. She she is unable to convey why her anticoagulants were stopped. Labs reviewed, troponin remains flat at 0.148, 0.182, and 0.173. Reviewing troponin lab values from a hospital admission in 2016, troponins were similarly elevated at 0.171, 0.179, 0.188, 0.196. Creatinine currently at 1.2. Potassium 3.4. WBC is 26.1, hemoglobin and hematocrit 10 and 31 respectively. Chest x-ray shows moderate to severe cardiomegaly that is stable, lungs are hypoinflated with central pulmonary vascular no definite infiltrate seen however left lung base is somewhat obscured. Carotid Doppler revealed 16- 49% diameter reduction narrowing of either internal carotid artery, no hemodynamically significant internal carotid artery stenosis. APRIL 28, 2017 Update: Vital Signs have remained stable overnight. The patient reports she feels better today. WBCs at 18,000, Creatinine stable at 1.2. EKG reveals AFIB. Echocardiogram is pending to reassess current systolic function. She does not appear to be in decompensated heart failure, nor does she appear to have an acute coronary syndrome. 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 Left parotid mass. Anticipate parotid duct dilation and irrigation 04/29/17 if no significant improvement. ASSESSMENT/PLAN: 1. ACUTE PAROTITIS -IV antibiotics, evaluated by ENT, for surgery tomorrow. 2. ELEVATED TROPONIN -remained flat, elevated similarly on previous admission. It is unclear to me why these were even ordered, perhaps because she had jaw pain, but this appears to be related to her acute problem of parotitis. She is not having an acute coronary syndrome clinically. 3. CHRONIC RENAL INSUFFICIENCY -continue to monitor 4. DIABETES MELLITUS -Accu-Cheks with SSI. 5. CHRONIC ATRIAL FIBRILLATION -continue aspirin, patient reports she was taken off anticoagulant over one year ago. There may be history of anemia. 6. CONGESTIVE HEART FAILURE -she does not appear to be in overt heart failure on exam. 7. HYPERTENSION -controlled, continue medications and monitoring. 8. CARDIOMYOPATHY -she is not in overt heart failure on exam. The patient will be at intermediate risk of perioperative cardiovascular complications with low risk surgery, due to her significant cardiomyopathy. She is not in overt heart failure, nor she having an acute coronary syndrome. Have discussed the procedure at length with Dr. huizar, and this will be very minimal anesthesia with a brief operative time. Given her ongoing infection, I do not believe that her cardiac condition is prohibitive of proceeding with such necessary surgery. Exam (Progress Note) - Constitutional Vitals: Period Temp Pulse Resp BP Sys/Johnson Pulse Ox Last 24 Hr 97.2 F-100.2 F 87-104 18-20 95-176/54-75 90-94 General appearance: no acute distress - Head Head exam: Present: other (left jaw enlarged and tender to palpation) - Eye Pupils: Present: COURTNEY - Respiratory Respiratory exam: Present: clear to auscultation bilaterally, decreased breath sounds (bilateral bases) - Cardiovascular Cardiovascular exam: Present: irregular rhythm. Absent: carotid bruit, gallop, JVD, systolic murmur - GI/Abdominal GI/Abdominal exam: Present: normal bowel sounds, soft - Extremities Exam Extremities exam: Present: normal inspection, full ROM, edema (trace) - Neurological Exam Neurological exam: Present: alert, oriented X3 - Psychiatric Psychiatric exam: Present: normal affect - Skin Skin exam: Present: normal color, warm, dry Result/EKG - Labs CBC & BMP: 04/28/17 04:55 04/28/17 04:55 Lab Results: I have reviewed the past 24 hour labs Labs: Laboratory Results - last 24 hr 04/26/17 04/27/17 04/27/17 17:14 09:39 11:28 WBC RBC Hgb Hct MCV MCH MCHC RDW Plt Count MPV Neut % (Auto) Lymph % (Auto) [place] % (Auto) Eos % (Auto) Baso % (Auto) Neut # (Auto) Lymph # (Auto) [place] # (Auto) Eos # (Auto) Baso # (Auto) Total Counted Immature Gran % Nucleated RBC % Immature Gran # Segmented Neutrophils Lymphocytes Monocytes Eosinophils Nucleated RBCs # Immature Plt Fraction Hypochromasia Microcytosis Morphology Comment Sodium Potassium Chloride Carbon Dioxide Anion Gap BUN Creatinine GFR Calculation BUN/Creatinine Ratio Glucose POC Glucose 193 H 219 H Calculated Osmolality Calcium Total Creatine Kinase 58 CK-MB (CK-2) < 1.0 Troponin I 0.173 H 04/27/17 04/27/17 04/27/17 15:23 19:40 21:49 WBC RBC Hgb Hct MCV MCH MCHC RDW Plt Count MPV Neut % (Auto) Lymph % (Auto) [place] % (Auto) Eos % (Auto) Baso % (Auto) Neut # (Auto) Lymph # (Auto) [place] # (Auto) Eos # (Auto) Baso # (Auto) Total Counted Immature Gran % Nucleated RBC % Immature Gran # Segmented Neutrophils Lymphocytes Monocytes Eosinophils Nucleated RBCs # Immature Plt Fraction Hypochromasia Microcytosis Morphology Comment Sodium Potassium Chloride Carbon Dioxide Anion Gap BUN Creatinine GFR Calculation BUN/Creatinine Ratio Glucose POC Glucose 171 H 157 H 179 H Calculated Osmolality Calcium Total Creatine Kinase CK-MB (CK-2) Troponin I 04/28/17 04/28/17 04/28/17 04:55 04:55 07:20 WBC 18.1 H D RBC 3.84 Hgb 9.5 L Hct 29.0 L MCV 75.5 L MCH 25 L MCHC 32.8 RDW 19.9 H Plt Count 345 MPV 10.3 Neut % (Auto) 87.6 H Lymph % (Auto) 4.5 L [place] % (Auto) 6.4 Eos % (Auto) 0.3 Baso % (Auto) 0.3 Neut # (Auto) 15.9 H Lymph # (Auto) 0.8 L [place] # (Auto) 1.2 H Eos # (Auto) 0.1 Baso # (Auto) 0.1 Total Counted 100 Immature Gran % 0.9 Nucleated RBC % 0.0 Immature Gran # 0.16 Segmented Neutrophils 89 H Lymphocytes 5 L Monocytes 5 Eosinophils 1 Nucleated RBCs # 0.00 Immature Plt Fraction 0.0 Hypochromasia 1+ Microcytosis 1+ Morphology Comment Sodium 141 Potassium 3.5 Chloride 99 Carbon Dioxide 33 H Anion Gap 12.5 BUN 24 H Creatinine 1.20 H GFR Calculation 54 BUN/Creatinine Ratio 20.00 Glucose 143 H POC Glucose 169 H Calculated Osmolality 286.3 Calcium 8.9 Total Creatine Kinase CK-MB (CK-2) Troponin I - EKG EKG results: interpreted by me EKG shows: atrial fibrillation I, Gudelia Purvis MD, personally performed the services described in this documentation, ascribed by Eleni Bravo NP in my presence, and it is both accurate and complete 752 .
[2017-04-28] MEDS: LATANOPROST 0.005% OPH SOLN 2.5 ML BOTTLE BOTH EYES SCH (22:04)
[2017-04-28] MEDS: ENOXAPARIN 40 MG/0.4 ML SYRINGE SUBCUT SCH (22:04)
[2017-04-29 05:36] LABS: Basophils % 0.3 % (0.0-0.8); Eosinophils # 0.1 10*3/uL (0.0-0.87); Eosinophils % 0.9 % (0.00-10.9); Hematocrit 29.3 VOL% (35.7-47.0); Hemoglobin 9.6 GM/DL (12.0-16.0); Immature Granulocytes % 1.1 %; Immature Granulocytes Absolute 0.17 #; Lymphocytes # 0.8 10*3/uL (1.4-4.0); Lymphocytes % 5.5 % (21.3-54.2); Mean Corpuscular HGB Conc 32.8 GM/DL (32-36); Mean Corpuscular Hemoglobin 25 PG (27-34); Mean Corpuscular Volume 76.3 FL (87-102); Mean Platelet Volume 9.8 FL (9.6-12.0); Monocytes # 1.2 10*3/uL (0.11-0.8); Monocytes % 7.9 % (1.7-12.7); Neutrophils # 12.7 10*3/uL (1.4-7.4); Neutrophils % 84.3 % (38.7-73.9); Platelet Count 375 T/CUMM (130-400); Red Blood Count 3.84 MC/CUMM (3.8-5.5); Red Cell Distribution Width 19.8 % (9.3-17.3)
[2017-04-29] MEDS: PIPERACILLIN/TAZOBACTAM 3,375 MG in SODIUM CHLORIDE 0.9% 100 ML IV SCH ×3 (05:49→22:00)
[2017-04-29 06:10] LABS: Calcium 8.7 MG/DL (8.5-10.1); Magnesium 2.2 MG/DL (1.8-2.4); Osmolality,Calculated 280.5 MOS/KG (273-304); Potassium 3.6 MMOL/L (3.5-5.1)
[2017-04-29] MEDS ORDERED: LIDOCAINE 2%/EPI 20 ML VIAL ONE (08:42)
[2017-04-29] MEDS: LOSARTAN 50 MG TABLET PO SCH (08:49)
[2017-04-29] MEDS: hydrALAZINE 25 MG TABLET PO SCH ×2 (08:50→22:47)
[2017-04-29] MEDS: CARVEDILOL 3.125 MG TABLET PO SCH ×2 (08:50→17:07)
--- NOTE | 2017-04-29 09:26 | Hospitalist Progress Note ---
Assessment and Plan - Time spent with patient Time spent with patient: Greater than 30 minutes (1) Acute parotitis Status: Acute Current Visit: Yes (2) Cellulitis Status: Acute Current Visit: Yes (3) Preop cardiovascular exam Status: Acute Current Visit: Yes (4) Sepsis Status: Acute Current Visit: Yes Qualifiers: Sepsis type: sepsis due to unspecified organism Qualified Code(s): A41.9 - Sepsis, unspecified organism (5) Diabetes mellitus Status: Chronic Current Visit: Yes Qualifiers: Diabetes mellitus type: type 2 Diabetes mellitus complication status: with skin complications Diabetes mellitus complication detail: with dermatitis (6) Elevated troponin Status: Chronic Current Visit: Yes (7) Renal insufficiency Status: Chronic Current Visit: Yes (8) Congestive heart failure Status: Chronic Current Visit: No (9) Nonischemic cardiomyopathy Status: Chronic Assessment and plan: Continue his empiric antibiotics. Follow final cultures. Okay to proceed to surgery tomorrow. Monitor fingerstick glucose. Monitor renal function Cardiology following with elevated troponin, acute coronary syndrome has been ruled out. Elevated troponin may be related to his chronic kidney disease. DVT prophylaxis Current Visit: No Hospitalist: Subjective Interval history: 76-year-old man who is being managed for acute parotitis, he is a known diabetic with renal function insufficiency, cardiomyopathy. He is scheduled for surgery tomorrow. Pain slightly better today. No fever despite leukocytosis though improving. All cultures have been negative. Renal function is stable with creatinine at 1.3. He is other comorbidities puts him at some risk for postoperative complications , he has a revised cardiac risk index of 6.6 so he would proceed to surgery Exam - Constitutional Vitals: Period Temp Pulse Resp BP Sys/Johnson Pulse Ox Last 24 Hr 97.6 F-99.6 F 81-96 18-20 98-128/57-69 92-100 Exam: General appearance: no acute distress - Respiratory Respiratory exam: Present: clear to auscultation bilaterally - Cardiovascular Cardiovascular exam: Present: regular rate and rhythm - GI/Abdominal GI/Abdominal exam: Present: normal bowel sounds, soft, other (Nontender with no palpable masses or hepatosplenomegaly.) - Extremities Exam Extremities exam: Present: normal inspection - Neurological Exam Neurological exam: Present: alert, oriented X3 - Skin Skin exam: Present: normal color, warm, intact Results - Labs CBC & BMP: 04/29/17 05:12 04/29/17 05:12 Lab Results: I have reviewed the past 24 hour labs
[2017-04-29] MEDS ORDERED: CHLORHEXIDINE 0.12% ORAL RINSE 60 ML BOTTLE SWISH/SPIT ONE (09:31)
[2017-04-29] MEDS: metFORMIN 500 MG TABLET PO SCH ×2 (10:10→17:07)
[2017-04-29] MEDS: FERROUS SULFATE 325 MG TABLET PO SCH ×2 (10:10→22:47)
[2017-04-29] MEDS: SPIRONOLACTONE 25 MG TABLET PO SCH ×2 (10:10→17:07)
[2017-04-29] MEDS: ASPIRIN EC 81 MG TABLET PO SCH (10:11)
--- NOTE | 2017-04-29 10:18 | Operative Note ---
Date of procedure: 04/29/17 Pre-op diagnosis: Left acute parotiditis, trismus, sepsis, congestive heart failure with ejec Post-op diagnosis: same Procedure: 1. Left parotid duct dilation 2. Left parotid duct irrigation After appropriate informed consent was signed and placed on the chart patient was taken back to the operative theater where timeout was performed to verify the correct patient with correct procedure patient was transferred in supine position onto the operative table where anesthesia performed general endotracheal anesthesia. A sweetheart retractor was placed in the patient's left cheek and extended laterally for visualization of the left parotid duct which was then cannulated with a 0 lacrimal probe and sequentially dilated up to a #3 lacrimal probe. A blunt tip catheter/needle was placed into the dilated duct and a total of 6 cc of normal saline was injected for irrigation. The parotid gland was then digitally massaged for at least 30 seconds and the oral cavity was visualized at that time a yellow stone was visualized that may have been extruded from the recently dilated duct it was inadvertently suctioned. I was not able to visualize a gross amount of purulent drainage from the duct but it was visually open. All instrumentation was removed the patient was allowed to emerge from anesthesia uneventfully and she was taken back to her inpatient room where she will continue her medical treatment. Anesthesia: GETA Surgeon / Physician: Teo Newman Estimated blood loss: minimal Specimens: none sent Condition: stable Disposition: PACU Results - Labs CBC & BMP: 04/29/17 05:12 04/29/17 05:12 Discharge Plan - Discharge Medications No Action Digoxin Tab [Lanoxin Tab] 0.125 mg PO QOTHER DAY Losartan [Cozaar] 25 mg PO DAILY Omeprazole [Prilosec] 20 mg PO DAILY Magnesium Oxide [Magox 400] 400 mg PO BID Aspirin [Ecotrin] 81 mg PO QAM Furosemide Tab [Lasix Tab] 80 mg PO BID DIURETIC #60 tablet Carvedilol [Coreg] 3.125 mg PO BID W/MEALS Ferrous Sulfate Tab [Feosol Original Tab] 325 mg PO BID hydrALAZINE TAB [Apresoline Tab] 25 mg PO BID Linagliptin [Tradjenta] 5 mg PO DAILY metFORMIN [Glucophage] 1,000 mg PO DAILY W/BREAKFAST Potassium Chloride 10 meq PO QOTHER DAY Spironolactone [Aldactone] 25 mg PO BID DIURETIC Latanoprost 0.005% Oph Soln [Xalatan 0.005% Oph Soln] 2 drops BOTH EYES BEDTIME metFORMIN [Glucophage] 500 mg PO QPM Albuterol Inhaler [Proventil Inhaler] 2 puff INH Q4H PRN PRN Reason: Shortness Of Breath/Wheezing - Follow Up or Referral - Forms/Instructions
--- NOTE | 2017-04-29 10:22 | Anesthesia Post-Op ---
Anesthesia Post OP - Post Ansesthetic Evaluation Patient seen in post op: Yes Resp: within normal limits CV: within normal limits Mental: within normal limits Temp: within normal limits [id number]: within normal limits Nausea and Vomiting: within normal limits Pain: within normal limits
[2017-04-29] MEDS ORDERED: ONDANSETRON 4 MG/2 ML VIAL ONE ×2 (10:24→10:27)
[2017-04-29] MEDS ORDERED: HYDROmorphone 2 MG/1 ML VIAL ONE (10:24)
[2017-04-29] MEDS ORDERED: HYDROmorphone 2 MG/1 ML VIAL IV PRN (10:25)
[2017-04-29] MEDS ORDERED: ONDANSETRON 4 MG/2 ML VIAL IV PRN (10:25)
[2017-04-29] MEDS ORDERED: DEXAMETHASONE 10 MG/1 ML VIAL ONE (10:27)
[2017-04-29] MEDS ORDERED: fentaNYL 100 MCG/2 ML VIAL ONE (10:27)
[2017-04-29] MEDS ORDERED: PROPOFOL 200 MG/20 ML VIAL IV ONE (10:27)
[2017-04-29] MEDS ORDERED: NALOXONE 0.4 MG/ML VIAL ONE (10:27)
[2017-04-29] MEDS ORDERED: LACTATED RINGERS 1,000 ML IV SCH (10:30)
[2017-04-29] MEDS: MAGNESIUM OXIDE 400 MG TABLET PO SCH ×2 (10:58→22:47)
[2017-04-29] MEDS: POTASSIUM CHLORIDE 10 MEQ TABLET PO SCH (11:05)
[2017-04-29] MEDS: PANTOPRAZOLE 40 MG TABLET PO SCH (11:05)
[2017-04-29] MEDS: sitaGLIPtin 100 MG TABLET PO SCH (11:05)
--- NOTE | 2017-04-29 14:45 | Neurology Progress Note ---
Neurology - PN : Subjective Interval history: Patient seems to be doing better. Much more alert and awake. Follow commands. Talking fine. MRI is negative. Exam (Progress Note) - Constitutional Vitals: Period Temp Pulse Resp BP Sys/Johnson Pulse Ox Last 24 Hr 97.4 F-99.6 F 79-94 16-20 94-128/57-74 92-100 Exam: GENERAL: Patient is in no acute distress. NECK: Neck is supple. There is no JVD. No carotid bruits present. No thyroid masses. Face is swollen CVS: First and second heart sounds are normal. There is no S3 present. Regular rate and rhythm. RESPIRATORY: Lungs are clear to auscultation without any rales or rhonchi. ABDOMEN: Soft and non-tender. Bowel sounds are present. There is no hepatosplenomegaly. EXT: There is no palpable edema. Peripheral pulses are present. Skin: No rashes Central Nervous system: General: Alert, awake and Oriented x 3 Speech: Fluent Comprehension: Intact and normal Facial expressions: Normal Cranial Nerves: CN1/Olfactory: Normal CN II/ Optic: Normal, Visual Siegel unreliable CN III, and : COURTNEY & EOMI CN V: Normal & intact CN VII: face is symmetric CNVIII: Normal CN XI/X/XI/XII: Intact and Normal Motor: Bulk and Tone is normal. Strength in the right 3-4/5 Strength in the left 3-4/5 Sensory: Grossly intact for all the modalities of PP, LT and temp sense Reflexes: 1+ and symmetrical Cerebellar function: Normal finger to nose and heel to vasquez testing. Toes: Equivocal Gait: Not tested at this time Assessment: Seizure-like activity. No more spells reported. Recommendations/plan: Hold off to any AEDs No further recommendations from neuro standpoint Results - Labs CBC & BMP: 04/29/17 05:12 04/29/17 05:12
--- NOTE | 2017-04-29 15:39 | Cardiology Progress Note ---
Lawrence Chan Lesley, VEENA, am scribing for, and in the presence of, Gudelia Purvis MD 15:39. Assessment and Plan - Time spent with patient Time spent with patient: Greater than 30 minutes (Record review, assessment, and documentation) (1) Acute parotitis Status: Acute Assessment and plan: SEE PLAN OF CARE LISTED BELOW Current Visit: Yes (2) Elevated troponin Status: Chronic Assessment and plan: SEE PLAN OF CARE LISTED BELOW Current Visit: Yes (3) Renal insufficiency Status: Chronic Assessment and plan: SEE PLAN OF CARE LISTED BELOW Current Visit: Yes (4) Diabetes mellitus Status: Chronic Assessment and plan: SEE PLAN OF CARE LISTED BELOW Current Visit: Yes Qualifiers: Diabetes mellitus type: type 2 Diabetes mellitus complication status: with skin complications Diabetes mellitus complication detail: with dermatitis (5) Atrial fibrillation Status: Chronic Assessment and plan: SEE PLAN OF CARE LISTED BELOW Current Visit: No (6) Congestive heart failure Status: Chronic Assessment and plan: SEE PLAN OF CARE LISTED BELOW Current Visit: No (7) Essential hypertension Status: Chronic Assessment and plan: SEE PLAN OF CARE LISTED BELOW Current Visit: No Cardiology - PN: Subj Interval history: TAXATION INSPECTOR: Dr. Morales Ms. Garcia is a 76 year old BF, who is an established patient with Dr. Morales. The patient was last seen in the [facility] by Dr. Morales on 11/03/2016. The patient has cardiac history significant for chronic atrial fibrillation, congestive heart failure, cardiomyopathy, hypertension, diabetes type 2, dyslipidemia, obesity, advanced age. Echocardiogram most recent 09/2015 revealed cardiomegaly involving all 4 chambers. Severely depressed LV systolic function without hypertrophy. Estimated LVEF 10%, grade 3-4 diastolic dysfunction. Severe pulmonary hypertension with severe TR, moderate MR. Small to moderate pericardial effusion without echocardiographic signs of tamponade on, pleural effusion. EKG done 11/2016 revealed atrial fibrillation. The patient states she was told to stop her anticoagulants several years ago, she reports she only takes an aspirin. She she is unable to convey why her anticoagulants were stopped. She was admitted with parotitis. We were consulted for elevated troponin, which was chronic for her. Carotid Doppler revealed 16-49% diameter reduction narrowing of either internal carotid artery, no hemodynamically significant internal carotid artery stenosis. APRIL 29, 2017 Update: Vital Signs have remained stable overnight. The patient reports she feels better today. She continues to deny chest pain or shortness of breath. WBCs at 15,000, Creatinine stable at 1.3. EKG reveals AFIB. Echocardiogram reveals severely reduced LV systolic function, biatrial enlargement, biventricular dilatation and hypokinesis. Moderate to severe MR, severe TR, trace pulmonic regurgitation, small pericardial effusion. She does not appear to be in decompensated heart failure, nor does she appear to have an acute coronary syndrome. ASSESSMENT/PLAN: 1. ACUTE PAROTITIS -IV antibiotics, S/P parotid gland dilatation and irrigation by ENT 2. ELEVATED TROPONIN -remained flat, elevated similarly on previous admission. It is unclear to me why these were even ordered, perhaps because she had jaw pain, but this appears to be related to her acute problem of parotitis. She is not having an acute coronary syndrome clinically. 3. CHRONIC RENAL INSUFFICIENCY -continue to monitor 4. DIABETES MELLITUS -Accu-Cheks with SSI. 5. CHRONIC ATRIAL FIBRILLATION -continue aspirin, patient reports she was taken off anticoagulant over one year ago. There may be history of anemia. 6. CONGESTIVE HEART FAILURE -she does not appear to be in overt heart failure on exam. 7. HYPERTENSION -controlled, continue medications and monitoring. 8. CARDIOMYOPATHY -she is not in overt heart failure on exam. Exam (Progress Note) - Constitutional Vitals: Period Temp Pulse Resp BP Sys/Johnson Pulse Ox Last 24 Hr 97.4 F-99.6 F 79-94 16-20 94-128/57-74 92-100 Exam: General: Appears well with no apparent distress. Pleasant and cooperative. Appears comfortable. HEENT: PERRL, normocephalic, atraumatic. Mucous membranes moist. No jaundice noted. Conjunctiva moist and clear, sclerae anicteric. Enlarged mass to the left jaw tender to palpation. Neck: No JVD/HJR, no thyromegaly or lymphadenopathy noted. No carotid bruit appreciated. Cardiac: Irregular rate and rhythm. Murmur present, no rub or gallop. PMI is nondisplaced. Lungs: Breath sounds diminished throughout without accessory muscle use to assist the respiratory pattern. Oxygen in use via nasal cannula. Abdomen: Soft, bowel sounds normoactive. Nontender and nondistended. No abdominal bruit or thrill noted. No masses noted. Musculoskeletal: No fluid collection. Decreased range of motion is noted to all extremities in bed. Extremities: No clubbing, cyanosis noted. Trace edema noted. Upper extremity pulses 2+. Lower extremity pulses 2+. Capillary refill less than 3 seconds. Skin: No unusual lesions or rashes. No skin breakdown appreciated. Neuro: Awake, alert and oriented 3. Moves all extremities well without hemiparesis or paralysis. No essential tremor is appreciated. Result/EKG - Labs CBC & BMP: 04/29/17 05:12 04/29/17 05:12 Lab Results: I have reviewed the past 24 hour labs Labs: Laboratory Results - last 24 hr 04/28/17 04/28/17 04/29/17 15:40 19:51 05:12 WBC 15.0 H RBC 3.84 Hgb 9.6 L Hct 29.3 L MCV 76.3 L MCH 25 L MCHC 32.8 RDW 19.8 H Plt Count 375 MPV 9.8 Neut % (Auto) 84.3 H Lymph % (Auto) 5.5 L [place] % (Auto) 7.9 Eos % (Auto) 0.9 Baso % (Auto) 0.3 Neut # (Auto) 12.7 H Lymph # (Auto) 0.8 L [place] # (Auto) 1.2 H Eos # (Auto) 0.1 Baso # (Auto) 0.0 Immature Gran % 1.1 Nucleated RBC % 0.0 Immature Gran # 0.17 Nucleated RBCs # 0.00 Immature Plt Fraction 0.0 Sodium Potassium Chloride Carbon Dioxide Anion Gap BUN Creatinine GFR Calculation BUN/Creatinine Ratio Glucose POC Glucose 141 H 158 H Calculated Osmolality Calcium Magnesium 04/29/17 04/29/17 04/29/17 05:12 07:17 11:23 WBC RBC Hgb Hct MCV MCH MCHC RDW Plt Count MPV Neut % (Auto) Lymph % (Auto) [place] % (Auto) Eos % (Auto) Baso % (Auto) Neut # (Auto) Lymph # (Auto) [place] # (Auto) Eos # (Auto) Baso # (Auto) Immature Gran % Nucleated RBC % Immature Gran # Nucleated RBCs # Immature Plt Fraction Sodium 139 Potassium 3.6 Chloride 99 Carbon Dioxide 35 H Anion Gap 8.6 BUN 21 H Creatinine 1.30 H GFR Calculation 49 BUN/Creatinine Ratio 16.00 Glucose 122 H POC Glucose 131 H 141 H Calculated Osmolality 280.5 Calcium 8.7 Magnesium 2.2 I, Gudelia Purvis MD, personally performed the services described in this documentation, ascribed by Eleni Bravo NP in my presence, and it is both accurate and complete .
[2017-04-29] MEDS: DIGOXIN 0.125 MG TABLET PO SCH (17:08)
[2017-04-29] MEDS: SODIUM CHLOR 0.9% KCL 40 MEQ 40 MEQ/1,000 ML BAG IV SCH (19:00)
[2017-04-29] MEDS: ENOXAPARIN 40 MG/0.4 ML SYRINGE SUBCUT SCH (22:47)
[2017-04-30] MEDS: LATANOPROST 0.005% OPH SOLN 2.5 ML BOTTLE BOTH EYES SCH ×2 (00:20→20:35)
[2017-04-30] MEDS: PIPERACILLIN/TAZOBACTAM 3,375 MG in SODIUM CHLORIDE 0.9% 100 ML IV SCH ×3 (05:01→20:30)
[2017-04-30 06:27] LABS: Calcium 9.3 MG/DL (8.5-10.1); Magnesium 2.4 MG/DL (1.8-2.4); Osmolality,Calculated 283.4 MOS/KG (273-304); Potassium 4.5 MMOL/L (3.5-5.1)
[2017-04-30 06:53] LABS: Risk Ratio 4.85; VLDL CHOLESTEROL 20.4 MG/DL
[2017-04-30 07:10] LABS: Basophils % 0.2 % (0.0-0.8); Eosinophils # 0.1 10*3/uL (0.0-0.87); Eosinophils % 0.3 % (0.00-10.9); Hematocrit 29.1 VOL% (35.7-47.0); Hemoglobin 9.3 GM/DL (12.0-16.0); Immature Granulocytes % 1.1 %; Immature Granulocytes Absolute 0.21 #; Lymphocytes # 1.1 10*3/uL (1.4-4.0); Lymphocytes % 5.7 % (21.3-54.2); Mean Corpuscular Hemoglobin 25 PG (27-34); Mean Platelet Volume 9.7 FL (9.6-12.0); Monocytes # 1.4 10*3/uL (0.11-0.8); Monocytes % 6.8 % (1.7-12.7); Neutrophils # 17.1 10*3/uL (1.4-7.4); Neutrophils % 85.9 % (38.7-73.9); Platelet Count 434 T/CUMM (130-400); Red Blood Count 3.78 MC/CUMM (3.8-5.5); Red Cell Distribution Width 19.8 % (9.3-17.3); White Blood Count 19.9 T/CUMM (4-12)
[2017-04-30] MEDS: MAGNESIUM OXIDE 400 MG TABLET PO SCH ×2 (08:39→20:25)
[2017-04-30] MEDS: metFORMIN 500 MG TABLET PO SCH ×2 (08:40→17:00)
[2017-04-30] MEDS: LOSARTAN 50 MG TABLET PO SCH (08:41)
[2017-04-30] MEDS: sitaGLIPtin 100 MG TABLET PO SCH (08:41)
[2017-04-30] MEDS: PANTOPRAZOLE 40 MG TABLET PO SCH (08:42)
[2017-04-30] MEDS: CARVEDILOL 3.125 MG TABLET PO SCH ×2 (08:42→17:00)
[2017-04-30] MEDS: FERROUS SULFATE 325 MG TABLET PO SCH ×2 (08:42→20:25)
[2017-04-30] MEDS: ASPIRIN EC 81 MG TABLET PO SCH (08:42)
[2017-04-30] MEDS: hydrALAZINE 25 MG TABLET PO SCH ×2 (08:42→20:24)
[2017-04-30] MEDS: SPIRONOLACTONE 25 MG TABLET PO SCH ×2 (08:49→17:01)
--- NOTE | 2017-04-30 10:54 | Hospitalist Progress Note ---
Assessment and Plan - Time spent with patient Time spent with patient: Greater than 30 minutes (1) Acute parotitis Status: Acute Current Visit: Yes (2) Cellulitis Status: Acute Current Visit: Yes (3) Preop cardiovascular exam Status: Acute Current Visit: Yes (4) Sepsis Status: Acute Current Visit: Yes Qualifiers: Sepsis type: sepsis due to unspecified organism Qualified Code(s): A41.9 - Sepsis, unspecified organism (5) Diabetes mellitus Status: Chronic Current Visit: Yes Qualifiers: Diabetes mellitus type: type 2 Diabetes mellitus complication status: with skin complications Diabetes mellitus complication detail: with dermatitis (6) Elevated troponin Status: Chronic Current Visit: Yes (7) Renal insufficiency Status: Chronic Current Visit: Yes (8) Congestive heart failure Status: Chronic Current Visit: No (9) Nonischemic cardiomyopathy Status: Chronic Assessment and plan: Continue his empiric antibiotics. Follow final cultures. Monitor CRP Monitor fingerstick glucose. Monitor renal function DVT prophylaxis Current Visit: No Hospitalist: Subjective Interval history: Postoperative day 1. Report of operation reviewed Tolerated procedure well. Worsening leukocytosis but no fever. Cultures have all been negative so far. Initial CRP was elevated, will get a repeat. Blood sugars are in acceptable range. Exam - Constitutional Vitals: Period Temp Pulse Resp BP Sys/Johnson Pulse Ox Last 24 Hr 97.3 F-99.4 F 60-88 16-20 100-156/50-82 93-100 Exam: General appearance: no acute distress - Respiratory Respiratory exam: Present: clear to auscultation bilaterally - Cardiovascular Cardiovascular exam: Present: regular rate and rhythm - GI/Abdominal GI/Abdominal exam: Present: normal bowel sounds, soft, other (Nontender with no palpable masses or hepatosplenomegaly.) - Extremities Exam Extremities exam: Present: normal inspection - Neurological Exam Neurological exam: Present: alert, oriented X3 - Skin Skin exam: Present: normal color, warm, intact Results - Labs CBC & BMP: 04/30/17 05:30 04/30/17 05:30 Lab Results: I have reviewed the past 24 hour labs
[2017-04-30] MEDS: SODIUM CHLOR 0.9% KCL 40 MEQ 40 MEQ/1,000 ML BAG IV SCH (12:25)
--- NOTE | 2017-04-30 13:12 | Cardiology Progress Note ---
Assessment and Plan (1) Acute parotitis Status: Acute Assessment and plan: SEE PLAN OF CARE LISTED BELOW Current Visit: Yes (2) Elevated troponin Status: Chronic Assessment and plan: SEE PLAN OF CARE LISTED BELOW Current Visit: Yes (3) Renal insufficiency Status: Chronic Assessment and plan: SEE PLAN OF CARE LISTED BELOW Current Visit: Yes (4) Diabetes mellitus Status: Chronic Assessment and plan: SEE PLAN OF CARE LISTED BELOW Current Visit: Yes Qualifiers: Diabetes mellitus type: type 2 Diabetes mellitus complication status: with skin complications Diabetes mellitus complication detail: with dermatitis (5) Atrial fibrillation Status: Chronic Assessment and plan: SEE PLAN OF CARE LISTED BELOW Current Visit: No (6) Congestive heart failure Status: Chronic Assessment and plan: SEE PLAN OF CARE LISTED BELOW Current Visit: No (7) Essential hypertension Status: Chronic Assessment and plan: SEE PLAN OF CARE LISTED BELOW Current Visit: No Cardiology - PN: Subj Interval history: SENIOR PHYSICIAN: Dr. Morales Summary: The patient has cardiac history significant for chronic atrial fibrillation, congestive heart failure, cardiomyopathy, hypertension, diabetes type 2, dyslipidemia, obesity, advanced age. Echocardiogram most recent 09/2015 revealed cardiomegaly involving all 4 chambers. Severely depressed LV systolic function without hypertrophy. Estimated LVEF 10%, grade 3-4 diastolic dysfunction. Severe pulmonary hypertension with severe TR, moderate MR. Small to moderate pericardial effusion without echocardiographic signs of tamponade on , pleural effusion. EKG done 11/2016 revealed atrial fibrillation. The patient states she was told to stop her anticoagulants several years ago, she reports she only takes an aspirin. She she is unable to convey why her anticoagulants were stopped. She was admitted for parotiditis and is being treated for that. She is status post surgery April 29, 2017 for this condition. April 29, 2017 update: Clinically she is doing well, denies any chest pain, shortness of breath. Her hemodynamics are stable. She tolerated surgery well. She is unclear what her discharge plan is. Her left cheek is less swollen. ASSESSMENT/PLAN: 1. ACUTE PAROTITIS -IV antibiotics, evaluated by ENT, status post surgery. There appears to be some improvement. 2. ELEVATED TROPONIN -remained flat, elevated similarly on previous admission. It is unclear to me why these were even ordered, perhaps because she had jaw pain, but this appears to be related to her acute problem of parotitis. She is not having an acute coronary syndrome clinically. 3. CHRONIC RENAL INSUFFICIENCY -continue to monitor 4. DIABETES MELLITUS -Accu-Cheks with SSI. 5. CHRONIC ATRIAL FIBRILLATION -continue aspirin, patient reports she was taken off anticoagulant over one year ago. There may be history of anemia. 6. CONGESTIVE HEART FAILURE -she does not appear to be in overt heart failure on exam. 7. HYPERTENSION -controlled, continue medications and monitoring. 8. CARDIOMYOPATHY -she is not in overt heart failure on exam. She has done well from a cardiac standpoint. I am going to sign off, I expect she will be discharged soon. Please feel free to reconsult with any acute cardiac issues or dynamic changes. Exam (Progress Note) - Constitutional Vitals: Period Temp Pulse Resp BP Sys/Johnson Pulse Ox Last 24 Hr 97.3 F-99.4 F 60-87 18-20 96-156/50-82 93-100 Exam: General: Appears well with no apparent distress. Pleasant and cooperative. Appears comfortable. HEENT: PERRL, normocephalic, atraumatic. Mucous membranes moist. No jaundice noted. Conjunctiva moist and clear, sclerae anicteric. Enlarged mass to the left jaw tender to palpation, but decreased from yesterday. Neck: No JVD/HJR, no thyromegaly or lymphadenopathy noted. No carotid bruit appreciated. Cardiac: Irregular rate and rhythm. Murmur present, no rub or gallop. PMI is nondisplaced. Lungs: Breath sounds diminished throughout without accessory muscle use to assist the respiratory pattern. Oxygen in use via nasal cannula. Abdomen: Soft, bowel sounds normoactive. Nontender and nondistended. No abdominal bruit or thrill noted. No masses noted. Musculoskeletal: No fluid collection. Decreased range of motion is noted to all extremities in bed. Extremities: No clubbing, cyanosis noted. Trace edema noted. Upper extremity pulses 2+. Lower extremity pulses 2+. Capillary refill less than 3 seconds. Skin: No unusual lesions or rashes. No skin breakdown appreciated. Neuro: Awake, alert and oriented 3. Moves all extremities well without hemiparesis or paralysis. No essential tremor is appreciated. Result/EKG - Labs CBC & BMP: 04/30/17 05:30 04/30/17 05:30 Lab Results: I have reviewed the past 24 hour labs Labs: Laboratory Results - last 24 hr 04/29/17 04/29/1717 15:09 22:46 02:51 WBC RBC Hgb Hct MCV MCH MCHC RDW Plt Count MPV Neut % (Auto) Lymph % (Auto) [place] % (Auto) Eos % (Auto) Baso % (Auto) Neut # (Auto) Lymph # (Auto) [place] # (Auto) Eos # (Auto) Baso # (Auto) Immature Gran % Nucleated RBC % Immature Gran # Nucleated RBCs # Immature Plt Fraction Sodium Potassium Chloride Carbon Dioxide Anion Gap BUN Creatinine GFR Calculation BUN/Creatinine Ratio Glucose POC Glucose 180 H 91 182 H Calculated Osmolality Calcium Magnesium Triglycerides Cholesterol LDL Cholesterol VLDL Cholesterol HDL Cholesterol Heart Disease Risk Ratio 04/30/17 04/30/17 04/30/17 05:30 05:30 05:30 WBC 19.9 H D RBC 3.78 L Hgb 9.3 L Hct 29.1 L MCV 77.0 L MCH 25 L MCHC 32.0 RDW 19.8 H Plt Count 434 H MPV 9.7 Neut % (Auto) 85.9 H Lymph % (Auto) 5.7 L [place] % (Auto) 6.8 Eos % (Auto) 0.3 Baso % (Auto) 0.2 Neut # (Auto) 17.1 H Lymph # (Auto) 1.1 L [place] # (Auto) 1.4 H Eos # (Auto) 0.1 Baso # (Auto) 0.0 Immature Gran % 1.1 Nucleated RBC % 0.0 Immature Gran # 0.21 Nucleated RBCs # 0.00 Immature Plt Fraction 0.0 Sodium 140 Potassium 4.5 Chloride 101 Carbon Dioxide 34 H Anion Gap 9.5 BUN 21 H Creatinine 1.20 H GFR Calculation 54 BUN/Creatinine Ratio 17.00 Glucose 136 H POC Glucose Calculated Osmolality 283.4 Calcium 9.3 Magnesium 2.4 Triglycerides 102 Cholesterol 126 LDL Cholesterol 79.0 VLDL Cholesterol 20.4 HDL Cholesterol 26 L Heart Disease Risk Ratio 4.85 04/30/17 04/30/17 04/30/17 06:04 07:39 11:41 WBC RBC Hgb Hct MCV MCH MCHC RDW Plt Count MPV Neut % (Auto) Lymph % (Auto) [place] % (Auto) Eos % (Auto) Baso % (Auto) Neut # (Auto) Lymph # (Auto) [place] # (Auto) Eos # (Auto) Baso # (Auto) Immature Gran % Nucleated RBC % Immature Gran # Nucleated RBCs # Immature Plt Fraction Sodium Potassium Chloride Carbon Dioxide Anion Gap BUN Creatinine GFR Calculation BUN/Creatinine Ratio Glucose POC Glucose 153 H 145 H 178 H Calculated Osmolality Calcium Magnesium Triglycerides Cholesterol LDL Cholesterol VLDL Cholesterol HDL Cholesterol Heart Disease Risk Ratio
[2017-04-30] MEDS: ENOXAPARIN 40 MG/0.4 ML SYRINGE SUBCUT SCH (20:29)
[2017-05-01 04:52] LABS: Basophils # 0.1 10*3/uL (0.0-0.2); Basophils % 0.5 % (0.0-0.8); Eosinophils # 0.4 10*3/uL (0.0-0.87); Eosinophils % 3.3 % (0.00-10.9); Hematocrit 27.7 VOL% (35.7-47.0); Hemoglobin 8.9 GM/DL (12.0-16.0); Immature Granulocytes % 3.2 %; Immature Granulocytes Absolute 0.35 #; Lymphocytes # 1.4 10*3/uL (1.4-4.0); Lymphocytes % 12.7 % (21.3-54.2); Mean Corpuscular HGB Conc 32.1 GM/DL (32-36); Mean Corpuscular Hemoglobin 25 PG (27-34); Mean Corpuscular Volume 76.1 FL (87-102); Mean Platelet Volume 9.7 FL (9.6-12.0); Monocytes % 9.5 % (1.7-12.7); Neutrophils # 7.8 10*3/uL (1.4-7.4); Neutrophils % 70.8 % (38.7-73.9); Platelet Count 462 T/CUMM (130-400); Red Blood Count 3.64 MC/CUMM (3.8-5.5); Red Cell Distribution Width 19.8 % (9.3-17.3)
[2017-05-01] MEDS: PIPERACILLIN/TAZOBACTAM 3,375 MG in SODIUM CHLORIDE 0.9% 100 ML IV SCH ×3 (05:08→21:36)
[2017-05-01 06:16] LABS: Calcium 8.9 MG/DL (8.5-10.1); Magnesium 2.3 MG/DL (1.8-2.4); Osmolality,Calculated 283.3 MOS/KG (273-304); Potassium 4.4 MMOL/L (3.5-5.1)
[2017-05-01] MEDS: LOSARTAN 50 MG TABLET PO SCH (09:04)
[2017-05-01] MEDS: hydrALAZINE 25 MG TABLET PO SCH ×2 (09:05→21:37)
[2017-05-01] MEDS: SPIRONOLACTONE 25 MG TABLET PO SCH ×2 (09:05→17:20)
[2017-05-01] MEDS: MAGNESIUM OXIDE 400 MG TABLET PO SCH ×2 (09:05→21:38)
[2017-05-01] MEDS: FERROUS SULFATE 325 MG TABLET PO SCH ×2 (09:05→21:37)
[2017-05-01] MEDS: metFORMIN 500 MG TABLET PO SCH (09:05)
[2017-05-01] MEDS: CARVEDILOL 3.125 MG TABLET PO SCH ×2 (09:05→17:20)
[2017-05-01] MEDS: ASPIRIN EC 81 MG TABLET PO SCH (09:06)
[2017-05-01] MEDS: sitaGLIPtin 100 MG TABLET PO SCH (09:06)
[2017-05-01] MEDS: PANTOPRAZOLE 40 MG TABLET PO SCH (09:06)
[2017-05-01] MEDS: POTASSIUM CHLORIDE 10 MEQ TABLET PO SCH (09:06)
[2017-05-01] MEDS: DIGOXIN 0.125 MG TABLET PO SCH (17:18)
[2017-05-01] MEDS: SODIUM CHLOR 0.9% KCL 40 MEQ 40 MEQ/1,000 ML BAG IV SCH (21:00)
[2017-05-01] MEDS: DOCUSATE SODIUM 100 MG CAPSULE PO PRN (21:37)
[2017-05-01] MEDS: LATANOPROST 0.005% OPH SOLN 2.5 ML BOTTLE BOTH EYES SCH (21:37)
[2017-05-01] MEDS: ENOXAPARIN 40 MG/0.4 ML SYRINGE SUBCUT SCH (21:38)
[2017-05-02] MEDS: SODIUM CHLOR 0.9% KCL 40 MEQ 40 MEQ/1,000 ML BAG IV SCH (04:19)
[2017-05-02] MEDS: PIPERACILLIN/TAZOBACTAM 3,375 MG in SODIUM CHLORIDE 0.9% 100 ML IV SCH ×2 (05:28→13:00)
[2017-05-02 06:45] LABS: Basophils % 0.4 % (0.0-0.8); Eosinophils # 0.2 10*3/uL (0.0-0.87); Hematocrit 29.9 VOL% (35.7-47.0); Hemoglobin 9.7 GM/DL (12.0-16.0); Immature Granulocytes % 3.4 %; Immature Granulocytes Absolute 0.35 #; Lymphocytes # 1.1 10*3/uL (1.4-4.0); Lymphocytes % 10.7 % (21.3-54.2); Mean Corpuscular HGB Conc 32.4 GM/DL (32-36); Mean Corpuscular Hemoglobin 25 PG (27-34); Mean Corpuscular Volume 75.7 FL (87-102); Mean Platelet Volume 9.6 FL (9.6-12.0); Monocytes % 9.3 % (1.7-12.7); NRBC # 0.02 10*3/uL; Neutrophils # 7.7 10*3/uL (1.4-7.4); Neutrophils % 74.2 % (38.7-73.9); Platelet Count 552 T/CUMM (130-400); Red Blood Count 3.95 MC/CUMM (3.8-5.5); Red Cell Distribution Width 19.9 % (9.3-17.3); White Blood Count 10.3 T/CUMM (4-12)
[2017-05-02 07:14] LABS: Calcium 9.4 MG/DL (8.5-10.1); Magnesium 2.3 MG/DL (1.8-2.4); Osmolality,Calculated 279.5 MOS/KG (273-304); Potassium 4.9 MMOL/L (3.5-5.1)
--- NOTE | 2017-05-02 09:15 | Neurology Progress Note ---
Neurology - PN : Subjective Interval history: Patient seems to be doing much better. No new problems reported. No more syncopal episodes reported. EEG is within normal limits. Exam (Progress Note) - Constitutional Vitals: Period Temp Pulse Resp BP Sys/Johnson Pulse Ox Last 24 Hr 96.9 F-97.9 F 83-98 18-22 117-140/64-80 93-98 Exam: GENERAL: Patient is in no acute distress. NECK: Neck is supple. There is no JVD. No carotid bruits present. No thyroid masses. Face is swollen CVS: First and second heart sounds are normal. There is no S3 present. Regular rate and rhythm. RESPIRATORY: Lungs are clear to auscultation without any rales or rhonchi. ABDOMEN: Soft and non-tender. Bowel sounds are present. There is no hepatosplenomegaly. EXT: There is no palpable edema. Peripheral pulses are present. Skin: No rashes Central Nervous system: General: Alert, awake and Oriented x 3 Speech: Fluent Comprehension: Intact and normal Facial expressions: Normal Cranial Nerves: CN1/Olfactory: Normal CN II/ Optic: Normal, Visual Siegel unreliable CN III, and : COURTNEY & EOMI CN V: Normal & intact CN VII: face is symmetric CNVIII: Normal CN XI/X/XI/XII: Intact and Normal Motor: Bulk and Tone is normal. Strength in the right 4/5 Strength in the left 4/5 Sensory: Grossly intact for all the modalities of PP, LT and temp sense Reflexes: 1+ and symmetrical Cerebellar function: Normal finger to nose and heel to vasquez testing. Toes: Equivocal Gait: Not tested at this time Assessment: Seizure-like activity. No more spells reported. EEG is normal. Recommendations/plan: No indication to start any AEDs No further recommendations from neuro standpoint\ Sign off please call as needed Results - Labs CBC & BMP: 05/02/17 06:19 05/02/17 06:19
[2017-05-02] MEDS: LOSARTAN 50 MG TABLET PO SCH (09:53)
[2017-05-02] MEDS: sitaGLIPtin 100 MG TABLET PO SCH (09:54)
[2017-05-02] MEDS: hydrALAZINE 25 MG TABLET PO SCH (09:55)
[2017-05-02] MEDS: DOCUSATE SODIUM 100 MG CAPSULE PO PRN (09:55)
[2017-05-02] MEDS: FERROUS SULFATE 325 MG TABLET PO SCH (09:55)
[2017-05-02] MEDS: ASPIRIN EC 81 MG TABLET PO SCH (09:56)
[2017-05-02] MEDS: SPIRONOLACTONE 25 MG TABLET PO SCH (09:57)
[2017-05-02] MEDS: PANTOPRAZOLE 40 MG TABLET PO SCH (09:57)
[2017-05-02] MEDS: CARVEDILOL 3.125 MG TABLET PO SCH (09:57)
[2017-05-02] MEDS: MAGNESIUM OXIDE 400 MG TABLET PO SCH (09:57)
[2017-05-02] MEDS: metFORMIN 500 MG TABLET PO SCH (09:58)
--- NOTE | 2017-05-02 13:27 | Physician Query Form ---
CLICK EDIT DOCUMENT TO SELECT QUERY ANSWER --> OK --> SIGN Renetta Chaparro RN, CCDS Certified Clinical [employer] W) [phone] (f) [phone] [email or web address] PROVIDERS: Make your selection(s) from the choices in EACH section by typing an "x" and enter comments in the comment section. Please use your independent medical judgment in providing your response. This request does not imply that any particular answer is desired or expected. CLINICAL INDICATORS: (Providers should not edit this section) The medical record indicates that the patient was admitted with Sepsis, history of CHF, EF estimated LVEF 10%, and the patient is on Coreg. " She does not appear to be in decompensated heart failure" Please provide further specificity regarding CHF. ACUITY: ( ) Acute (x ) Chronic ( ) Acute on Chronic ( ) Clinically unable to determine TYPE: (x ) Systolic (HFrEF - heart failure with reduced systolic function/EF) ( ) Diastolic (HFpEF - heart failure with preserved systolic function/EF) ( ) Combined Systolic/Diastolic ( ) Other, please specify: ( ) Clinically unable to determine ( ) Past Medical History of Systolic CHF ( ) Past Medical History of Diastolic CHF ( ) Clinically unable to determine COMMENTS: PLEASE ALSO DOCUMENT RESPONSE IN PROGRESS NOTES AND/OR DISCHARGE SUMMARY Use of terms such as suspected, likely, or probable (associated with a specific diagnosis that is being evaluated, monitored, or treated as if it exists) are acceptable and can be restated in the discharge summary if not ruled out. MTDD
--- NOTE | 2017-05-02 14:07 | Discharge Summary ---
Hospital Course - Hospital Course Hospital Course: Mrs. Garcia is a 76-year-old female with history of hypertension CHF and diabetes mellitus. She was admitted on 04/24/2017 with the left hip jaw pain and swelling along with the Malaise. Prior to that she was seen by Dr. Ely and was given p.o. antibiotics. On the way to pharmacy family noted patient was shaking she was brought for evaluation was noted to have a leukocytosis with WBC count of 24.1 fever and tachycardia and suspected sepsis. CT of the face showed an enlarged left parotid gland. She was seen by neurology for shaking but did not suspect any acute CVA or seizure. She had elevated troponin also initially presentation but no acute coronary syndrome was suspected cardiology had signed off. For suspected sepsis due to parotitis she was started on IV antibiotics patient was seen by Dr. Teo Villela and underwent left parotid duct dilatation and irrigation. Her swelling and pain has improved since then. Her WBC count today is 10.3 her hemoglobin has been stable for the last few days she has been afebrile. She has received maximum benefit from the hospitalization Dr. Newman was called and no further intervention plan and he was okay for her to be discharged and follow-up with Dr. Harmon as she is known to him. Patient will be discharged on clindamycin p.o. per recommendation. Diagnosis - Discharge Diagnosis (1) Acute parotitis Status: Acute (2) Sepsis Status: Acute (3) Diabetes mellitus Status: Chronic (4) Elevated troponin Status: Chronic (5) Congestive heart failure Status: Chronic Specialty Discharge - Follow Up or Referrals Follow up with: Tru Harmon MD [Physician] - 05/04/17 11:00 am Discharge Plan - Discharge Data Disposition: Disch To Home/Self Care Condition at Discharge: Stable Discharge Diet: advance to your usual diet Activity: resume usual activities as tolerated - Discharge Medications New Clindamycin HCl [Clindamycin Cap] 300 mg PO Q6HR #28 capsule Continue Digoxin Tab [Lanoxin Tab] 0.125 mg PO QOTHER DAY Losartan [Cozaar] 25 mg PO DAILY Omeprazole [Prilosec] 20 mg PO DAILY Magnesium Oxide [Magox 400] 400 mg PO BID Aspirin [Ecotrin] 81 mg PO QAM Furosemide Tab [Lasix Tab] 80 mg PO BID DIURETIC #60 tablet Carvedilol [Coreg] 3.125 mg PO BID W/MEALS Ferrous Sulfate Tab [Feosol Original Tab] 325 mg PO BID hydrALAZINE TAB [Apresoline Tab] 25 mg PO BID Linagliptin [Tradjenta] 5 mg PO DAILY metFORMIN [Glucophage] 1,000 mg PO DAILY W/BREAKFAST Spironolactone [Aldactone] 25 mg PO BID DIURETIC Latanoprost 0.005% Oph Soln [Xalatan 0.005% Oph Soln] 2 drops BOTH EYES BEDTIME metFORMIN [Glucophage] 500 mg PO QPM Albuterol Inhaler [Proventil Inhaler] 2 puff INH Q4H PRN PRN Reason: Shortness Of Breath/Wheezing Discontinued Potassium Chloride 10 meq PO QOTHER DAY - Follow Up or Referral Follow Up: Tru Harmon MD [Physician] - 05/04/17 11:00 am - Forms/Instructions Exam - Constitutional Vitals: Period Temp Pulse Resp BP Sys/Johnson Pulse Ox Last 24 Hr 96.9 F-97.9 F 86-98 18-22 117-140/64-83 93-98 General appearance: no acute distress, over weight - Head Head exam: Present: normal inspection, normocephalic, atraumatic - Eye Eye exam: Present: EOMI Pupils: Present: COURTNEY - ENT ENT exam: Present: other (Enlarged left parotid gland with some tenderness ( improved per patient)) - Respiratory Respiratory exam: Present: clear to auscultation bilaterally. Absent: rales, rhonchi - Cardiovascular Cardiovascular exam: Present: regular rate and rhythm. Absent: tachycardia - GI/Abdominal GI/Abdominal exam: Present: normal bowel sounds, soft. Absent: distended, tenderness - Neurological Exam Neurological exam: Present: alert, oriented X3 Discharge Results Labs on day of discharge: Labs from last 24 hours 05/02/17 05/02/17 05/02/17 11:10 07:03 06:19 WBC RBC Hgb Hct MCV MCH MCHC RDW Plt Count MPV Neut % (Auto) Lymph % (Auto) Schuyler % (Auto) Eos % (Auto) Baso % (Auto) Neut # (Auto) Lymph # (Auto) Schuyler # (Auto) Eos # (Auto) Baso # (Auto) Immature Gran % Nucleated RBC % Immature Gran # Nucleated RBCs # Immature Plt Fraction Sodium Potassium Chloride Carbon Dioxide Anion Gap BUN Creatinine GFR Calculation BUN/Creatinine Ratio Glucose POC Glucose 153 H 145 H Calculated Osmolality Calcium Magnesium C-Reactive Protein 6.96 H 05/02/17 05/02/17 05/01/17 06:19 06:19 21:48 WBC 10.3 RBC 3.95 Hgb 9.7 L Hct 29.9 L MCV 75.7 L MCH 25 L MCHC 32.4 RDW 19.9 H Plt Count 552 H MPV 9.6 Neut % (Auto) 74.2 H Lymph % (Auto) 10.7 L Schuyler % (Auto) 9.3 Eos % (Auto) 2.0 Baso % (Auto) 0.4 Neut # (Auto) 7.7 H Lymph # (Auto) 1.1 L Schuyler # (Auto) 1.0 H Eos # (Auto) 0.2 Baso # (Auto) 0.0 Immature Gran % 3.4 Nucleated RBC % 0.2 Immature Gran # 0.35 Nucleated RBCs # 0.02 Immature Plt Fraction 0.0 Sodium 139 Potassium 4.9 Chloride 105 Carbon Dioxide 26 Anion Gap 12.9 BUN 16 Creatinine 1.10 H GFR Calculation 60 BUN/Creatinine Ratio 14.00 Glucose 134 H POC Glucose 135 H Calculated Osmolality 279.5 Calcium 9.4 Magnesium 2.3 C-Reactive Protein 05/01/17 15:17 WBC RBC Hgb Hct MCV MCH MCHC RDW Plt Count MPV Neut % (Auto) Lymph % (Auto) Schuyler % (Auto) Eos % (Auto) Baso % (Auto) Neut # (Auto) Lymph # (Auto) Schuyler # (Auto) Eos # (Auto) Baso # (Auto) Immature Gran % Nucleated RBC % Immature Gran # Nucleated RBCs # Immature Plt Fraction Sodium Potassium Chloride Carbon Dioxide Anion Gap BUN Creatinine GFR Calculation BUN/Creatinine Ratio Glucose POC Glucose 122 H Calculated Osmolality Calcium Magnesium C-Reactive Protein DS: Provider Date of admission: 04/26/17 19:34 Primary care physician: . No PCP Attending physician on admission: Steven Reid MD Consults: 04/26/17 20:21 Consult to Physician [CONS] Routine Comment: Parotitis Consulting Provider: Teo Newman Person Notified: ELISHA Date Notified: 04/27/17 Time Notified: 08:07 04/27/17 04:14 Consult to Physician [CONS] Routine Comment: syncope vs. seizure Consulting Provider: Shemar Trevino 04/27/17 11:18 Consult to Physician [CONS] Routine Comment: Elevated troponins, dilated cardiomyopathy Consulting Provider: Consult to Specialist Group: Cardiology When should Consulting Provider be notified: Now Person Notified: KAJAL Date Notified: 04/27/17 Time Notified: 11:27 05/02/17 11:55 Consult to Case Mgmt/Social Srvs [CONS] Routine Reason for Case Mgmt/Social Srvs: Home Health Discharging clinician: Cruz Nazario MD
--- NOTE | 2017-05-02 16:03 | Electroencephalogram ---
HISTORY: A 76-year-old female with a history of syncope. INTRODUCTION: A digital EEG was performed using the standard 10/20 system of electrode placement wit h one channel of EKG monitoring. Photic stimulation is performed. DESCRIPTION OF RECORD: The background is somewhat disorganized, but consists of 8 to 8.5 hertz moder ate amplitude bilaterally symmetrical alpha rhythm predominantly in the posterior head region that at tenuates with eye opening. Photic stimulation elicits a driving response at all flash frequencies. Hyperventilation was not performed. Drowsiness and sleep is not achieved. There are no focal, sharp wave, spike or wave activity seen. Heart rate 66 beats per minute. IMPRESSION: NORMAL EEG DURING WAKEFULNESS. CLINICAL CORRELATION: No focal nor epileptiform features are seen. Normal EEG does not rule out the diagnostic possibility of epilepsy. Clinical correlation is suggested.
[2017-05-02 17:00] VITALS: BP 135/79
== END 2017-05-02 17:30 | disposition home health service (06) | DRG 872 ==
LOC: N.ED 16:41 → N.EDINP 19:34 → SUATTDRO 19:34 → N.2E 21:01
PROVIDERS: ADMIT Family Medicine; ATTEND Internal Medicine